=== PATIENT | female | born 1990 | race Two or more races ===

== ENCOUNTER → 2019-01-15 | Outpatient (CLI) | payer OTHER | END | disposition home or self-care (01) | LOC: LAB 15:40 | PROVIDERS: ATTEND Preventive Medicine Preventive Medicine/Occupational Environmental Medicine | DX: Z02.1 Encounter for pre-employment examination (principal) | CPT/HCPCS: 86735; 86762; 86765 ==

== ENCOUNTER 2019-05-10 08:45 | Emergency (ER) | payer BC, OTHER ==
[~2019-05-10] VITALS: Ht 165.1 cm; Wt 114.3 kg
[2019-05-10 09:32] LABS: Basophils # (auto) 0.1 uL; Basophils % (auto) 0.8 % (0.0-2.0); Eosinophils # (auto) 0.1 uL; Eosinophils % (auto) 1.3 % (0.0-7.0); Hematocrit 45.4 % (36.0-46.0); Hemoglobin 15.1 g/dL (12.2-16.2); Mean Corpuscular Hemoglobin 27.4 pg (28.0-32.0); Mean Corpuscular Hgb Conc. 33.3 g/dL (32.0-36.0); Mean Corpuscular Volume 82.4 fL (80.0-100.0); Monocytes # (auto) 0.4 uL; Monocytes % (auto) 4.9 % (0.0-12.0); Neutrophils # (auto) 6.4 uL; Platelet Count (auto) 385 10^3/uL (140-450); Red Blood Cells 5.51 10^6/uL (4.0-5.20); Red Cell Distribution Width 14.4 % (11.8-14.3); White Blood Cell 9.1 10^3/uL (4.4-10.8)
[2019-05-10 09:43] LABS: Alanine Aminotransferase 26 U/L (13-56); Albumin 3.6 g/dL (3.4-5.0); Anion Gap 7 (5-15); Aspartate Aminotransferase 10 U/L (15-37); BUN/Creatinine Ratio 16.7; Blood Urea Nitrogen 13 mg/dL (7-18); Calcium 8.7 mg/dL (8.5-10.1); Carbon Dioxide 26 mmol/L (21-32); Chloride 104 mmol/L (98-107); GFR African American 112 mL/min; GFR Non-African American 92 mL/min; Glucose 136 mg/dL (74-106); Potassium 3.8 mmol/L (3.5-5.1); Sodium 137 mmol/L (136-145)
[2019-05-10 09:48] LABS: Alkaline Phosphatase 90 U/L (45-117); Bilirubin, Total 0.3 mg/dL (0.2-1.0); Total Protein 7.9 g/dL (6.4-8.2)
[2019-05-10] MEDS ORDERED: LORazepam 0.5 MG TAB PO ONE (10:15)
[2019-05-10 10:56] LABS: Urine WBC None Seen /hpf (0 - 5)
[2019-05-10 11:15] LABS: Urine Bacteria FEW /hpf (None Seen); Urine Blood Negative /uL (Negative); Urine Specific Gravity 1.019 (1.001-1.035)
[2019-05-10 13:57] VITALS: BP 124/84
== END 2019-05-10 14:10 | disposition home or self-care (01) ==
LOC: ER 08:45
DX: F41.9 Anxiety disorder, unspecified (principal); R07.89 Other chest pain; R61 Generalized hyperhidrosis; R42 Dizziness and giddiness; I10 Essential (primary) hypertension; M25.512 Pain in left shoulder; R00.2 Palpitations
CPT/HCPCS: 36415; 71046; 80053; 81001; 84443; 84484; 85025; 93005

== ENCOUNTER → 2019-05-21 | Outpatient (CLI) | payer BC ==
[2019-05-21 11:55] LABS: Basophils # (auto) 0.1 uL; Basophils % (auto) 0.7 % (0.0-2.0); Eosinophils # (auto) 0.1 uL; Eosinophils % (auto) 0.8 % (0.0-7.0); Hematocrit 42.7 % (36.0-46.0); Hemoglobin 14.1 g/dL (12.2-16.2); Lymphocytes # (auto) 1.3 uL; Lymphocytes % (auto) 16.4 % (10.0-50.0); Mean Corpuscular Hemoglobin 27.3 pg (28.0-32.0); Mean Corpuscular Hgb Conc. 32.9 g/dL (32.0-36.0); Monocytes # (auto) 0.4 uL; Monocytes % (auto) 4.6 % (0.0-12.0); Neutrophils # (auto) 6.1 uL; Neutrophils % (auto) 77.5 % (37.0-80.0); Nucleated Red Blood Cells % 0.1 %; Platelet Count (auto) 320 10^3/uL (140-450); Red Blood Cells 5.15 10^6/uL (4.0-5.20); Red Cell Distribution Width 14.6 % (11.8-14.3); White Blood Cell 7.8 10^3/uL (4.4-10.8)
[2019-05-21 11:56] LABS: Urine Blood Negative /uL (Negative); Urine Specific Gravity 1.014 (1.001-1.035)
[2019-05-21 12:07] LABS: Albumin 3.5 g/dL (3.4-5.0); Calcium 8.9 mg/dL (8.5-10.1); Potassium 3.8 mmol/L (3.5-5.1)
[2019-05-21 12:18] LABS: Bilirubin, Total 0.3 mg/dL (0.2-1.0); CRP High Sensitivity 1.39 mg/dL (< 0.3); Total Protein 7.4 g/dL (6.4-8.2)
[2019-05-22 17:10] LABS: Free T4 (Free Thyroxine) 1.39 ng/dL (0.89-1.76)
== END | disposition home or self-care (01) ==
LOC: LAB 07:53
PROVIDERS: ATTEND Internal Medicine Cardiovascular Disease
DX: Z00.00 Encounter for general adult medical examination without abnormal findings (principal); N60.11 Diffuse cystic mastopathy of right breast; E03.9 Hypothyroidism, unspecified; K90.9 Intestinal malabsorption, unspecified; N39.0 Urinary tract infection, site not specified; D51.9 Vitamin B12 deficiency anemia, unspecified; Z83.2 Family history of diseases of the blood and blood-forming organs and certain disorders involving the immune mechanism; Z79.899 Other long term (current) drug therapy
CPT/HCPCS: 36415; 80053; 80061; 81003; 82306; 82607; 83036; 84439; 84443; 85025; 86141; 86431

== ENCOUNTER 2019-07-22 12:31 | Emergency (ER) | payer BC ==
[~2019-07-22] VITALS: Ht 162.6 cm; Wt 113.4 kg
[2019-07-22] MEDS ORDERED: KETOROLAC TROMETH 60MG/2ML VIAL IM ONE (19:15)
[2019-07-22 19:35] VITALS: BP 141/99
== END 2019-07-22 21:05 | disposition home or self-care (01) ==
LOC: ER 12:31
DX: G54.9 Nerve root and plexus disorder, unspecified (principal); I10 Essential (primary) hypertension; Z90.49 Acquired absence of other specified parts of digestive tract; Z88.8 Allergy status to other drugs, medicaments and biological substances; Z88.5 Allergy status to narcotic agent
CPT/HCPCS: 72131; 74176; 96372; 99285; J1885

== ENCOUNTER → 2020-01-01 | Outpatient (CLI) | payer BC ==
[2020-01-01 08:35] LABS: Cholesterol 127 mg/dL (< 200); HDL Cholesterol 35 mg/dL (40-59); LDL Cholesterol 87 mg/dL (< 100); Triglycerides 104 mg/dL (< 150)
[2020-01-01 08:42] LABS: Free T4 (Free Thyroxine) 1.32 ng/dL (0.89-1.76); Prolactin 21.68 ng/mL (2.8-29.2)
[2020-01-01 08:43] LABS: Follicle Stimulating Hormone 8.19 IU/L (SEE BELOW)
[2020-01-01 12:27] LABS: Free T3 3.55 pg/mL (2.3-4.2)
== END | disposition home or self-care (01) ==
LOC: LAB 07:20
PROVIDERS: ATTEND Specialist
DX: N92.1 Excessive and frequent menstruation with irregular cycle (principal); I10 Essential (primary) hypertension; E03.9 Hypothyroidism, unspecified
CPT/HCPCS: 36415; 80061; 83001; 83002; 83036; 84146; 84403; 84439; 84443; 84481

== ENCOUNTER → 2020-05-15 | Outpatient (CLI) | payer OTHER | END | disposition home or self-care (01) | LOC: LAB 12:29 | PROVIDERS: ATTEND Nurse Practitioner Family | DX: U07.1 COVID-19 (principal) | CPT/HCPCS: C9803; U0003 ==

== ENCOUNTER 2020-05-23 13:18 | Emergency (ER) | payer BC, OTHER ==
[2020-05-23] MEDS ORDERED: PROMETHAZINE HCL 25 MG/ML 1ML IM ONE (16:00)
[2020-05-23] MEDS ORDERED: DexAMETHasone SOD PHOS 10MG/1ML VIAL INJ IM ONE (16:00)
[2020-05-23] MEDS ORDERED: cefTRIAXone SOD 1,000 MG VL IM ONE (16:00)
== END 2020-05-23 17:13 | disposition home or self-care (01) ==
LOC: ER 13:18
DX: U07.1 COVID-19 (principal); J20.8 Acute bronchitis due to other specified organisms; J45.909 Unspecified asthma, uncomplicated; I10 Essential (primary) hypertension
CPT/HCPCS: 71045; 96372; 99284; J0696; J1100; J2550

== ENCOUNTER → 2020-06-17 | Outpatient (CLI) | payer BC, MEDICAID ==
[2020-06-17 09:03] LABS: Cholesterol 186 mg/dL (< 200); Triglycerides 208 mg/dL (< 150)
[2020-06-17 09:06] LABS: HDL Cholesterol 51 mg/dL (40-59); LDL Cholesterol 113 mg/dL (< 100)
== END | disposition home or self-care (01) ==
LOC: LAB 07:12
PROVIDERS: ATTEND Physician Assistant
DX: E66.01 Morbid (severe) obesity due to excess calories (principal); Z83.2 Family history of diseases of the blood and blood-forming organs and certain disorders involving the immune mechanism
CPT/HCPCS: 36415; 80061; 86038

== ENCOUNTER → 2020-08-07 | Outpatient (CLI) | payer BC, MEDICAID ==
[2020-08-07 11:24] LABS: Urine Bacteria NONE SEEN /hpf (None Seen); Urine Blood Negative /uL (Negative); Urine Mucus FEW (None Seen); Urine Specific Gravity 1.026 (1.001-1.035); Urine WBC 2 /hpf (0 - 5)
== END | disposition home or self-care (01) ==
LOC: LAB 10:49
PROVIDERS: ATTEND Specialist
DX: R10.2 Pelvic and perineal pain (principal)
CPT/HCPCS: 81001; 87086

== ENCOUNTER → 2020-08-20 | Outpatient (CLI) | payer BC, MEDICAID | END | disposition home or self-care (01) | LOC: LAB 16:12 | PROVIDERS: ATTEND Specialist | DX: R10.30 Lower abdominal pain, unspecified (principal) | CPT/HCPCS: 36415; 82565; 84520 ==

== ENCOUNTER → 2020-08-21 | Outpatient (CLI) | payer BC ==
[~2020-08-21] MED LIST: GADOTERATE MEG 10 MMOL/20ml INJ (0.5MMOL/ml) IV ONE
== END | disposition home or self-care (01) ==
LOC: XYW 10:26
PROVIDERS: ATTEND Specialist
DX: N83.201 Unspecified ovarian cyst, right side (principal)
CPT/HCPCS: 73723; A9575

== ENCOUNTER → 2020-10-02 | Outpatient (CLI) | payer BC ==
[2020-10-02 11:44] LABS: Basophils # (auto) 0 10 ^3/uL (0-0.2); Eosinophils # (auto) 0.1 10 ^3/uL (0-0.8); Hemoglobin 13.9 g/dL (12.2-16.2); Mean Corpuscular Volume 80.7 fL (80.0-100.0); Monocytes # (auto) 0.4 10 ^3/uL (0-1.3)
[2020-10-02 11:48] LABS: Basophils % (auto) 0.4 % (0.0-2.0); Eosinophils % (auto) 1.5 % (0.0-7.0); Hematocrit 41.4 % (36.0-46.0); Lymphocytes # (auto) 2.1 10 ^3/uL (0.4-5.4); Lymphocytes % (auto) 26.7 % (10.0-50.0); Mean Corpuscular Hemoglobin 27.1 pg (28.0-32.0); Mean Corpuscular Hgb Conc. 33.5 g/dL (32.0-36.0); Monocytes % (auto) 4.5 % (0.0-12.0); Neutrophils # (auto) 5.4 10 ^3/uL (1.6-8.6); Neutrophils % (auto) 66.9 % (37.0-80.0); Platelet Count (auto) 399 10^3/uL (140-450); Red Blood Cells 5.13 10^6/uL (4.0-5.20); Red Cell Distribution Width 14.4 % (11.8-14.3)
[2020-10-02 12:21] LABS: Albumin 3.7 g/dL (3.4-5.0); Calcium 9.7 mg/dL (8.5-10.1); Potassium 3.9 mmol/L (3.5-5.1)
[2020-10-02 12:26] LABS: BUN/Creatinine Ratio 18.5; Bilirubin, Total 0.3 mg/dL (0.2-1.0); Total Protein 8.1 g/dL (6.4-8.2)
== END | disposition home or self-care (01) ==
LOC: LAB 11:12
PROVIDERS: ATTEND Specialist
DX: R10.9 Unspecified abdominal pain (principal)
CPT/HCPCS: 36415; 80053; 80061; 82378; 84443; 85025; 86304

== ENCOUNTER 2020-10-17 07:29 | Inpatient (IN) | payer BC ==
[2020-10-14 13:01] LABS: Basophils # (auto) 0.1 10 ^3/uL (0-0.2); Basophils % (auto) 0.5 % (0.0-2.0); Eosinophils # (auto) 0.1 10 ^3/uL (0-0.8); Eosinophils % (auto) 0.5 % (0.0-7.0); Hematocrit 41.1 % (36.0-46.0); Hemoglobin 13.7 g/dL (12.2-16.2); Lymphocytes # (auto) 2.3 10 ^3/uL (0.4-5.4); Lymphocytes % (auto) 23.5 % (10.0-50.0); Mean Corpuscular Hemoglobin 26.6 pg (28.0-32.0); Mean Corpuscular Hgb Conc. 33.3 g/dL (32.0-36.0); Mean Corpuscular Volume 79.9 fL (80.0-100.0); Monocytes # (auto) 0.4 10 ^3/uL (0-1.3); Neutrophils % (auto) 71.5 % (37.0-80.0); Nucleated Red Blood Cells % 0.2 %; Platelet Count (auto) 400 10^3/uL (140-450); Red Blood Cells 5.15 10^6/uL (4.0-5.20); Red Cell Distribution Width 14.7 % (11.8-14.3); White Blood Cell 9.8 10^3/uL (4.4-10.8)
[2020-10-14 13:10] LABS: Urine Bacteria MOD /hpf (None Seen); Urine Blood Negative /uL (Negative); Urine Mucus FEW (None Seen); Urine Specific Gravity 1.012 (1.001-1.035); Urine WBC 2 /hpf (0 - 5)
[2020-10-14 13:14] LABS: INR 0.97 (0.9-1.15); Partial Thromboplastin Time 25.6 sec (23.0-31.2)
[2020-10-14 14:05] LABS: Albumin 3.4 g/dL (3.4-5.0); Calcium 9.2 mg/dL (8.5-10.1); Potassium 3.7 mmol/L (3.5-5.1)
[2020-10-14 14:10] LABS: BUN/Creatinine Ratio 14.5; Bilirubin, Total 0.3 mg/dL (0.2-1.0); Total Protein 7.7 g/dL (6.4-8.2)
[~2020-10-17] VITALS: Ht 162.6 cm; Wt 117.2 kg
[~2020-10-17 07:29] MED LIST changes: +ALPR0.5T PO; +BENA20TA PO; -GADOTERATE MEG 10 MMOL/20ml INJ (0.5MMOL/ml) IV ONE; +IBUP800T26 PO; +METF-370 PO; +TIZA2CAP12 PO; +[UNRECOGNIZED DRUG - CODE] PO
[2020-10-17] MEDS ORDERED: ceFAZolin 1GM/50ML 100 ML IV ONE (07:41)
[2020-10-17] MEDS ORDERED: METOCLOPRAMIDE HCL 5MG/ml INJ 2ml VIAL IV PRN (07:45)
[2020-10-17] MEDS ORDERED: HYDROmorphone HCL 2 MG/ML VL IV PRN ×2 (07:45→12:00)
[2020-10-17] MEDS ORDERED: MORPHINE SULFATE 4 MG/ML SYR/VIAL IV PRN (07:45)
[2020-10-17] MEDS ORDERED: ACCU-CHEK COMFORT CURVE STRIP VI ONE (07:45)
[2020-10-17] MEDS ORDERED: ceFAZolin 1GM/50ML 50 ML IV ONE (07:51)
[2020-10-17] MEDS ORDERED: ROCURONIUM 10MG/ML 10ML VIAL IV ONE ×2 (08:24→08:26)
[2020-10-17] MEDS ORDERED: MIDAZOLAM HCL 1MG/1ML-2 ML VIAL ONE (08:26)
[2020-10-17] MEDS ORDERED: ONDANSETRON HCL 4 MG/2 ML VIAL ONE (08:26)
[2020-10-17] MEDS ORDERED: DexAMETHasone SOD PHOS 10MG/1ML VIAL INJ ONE (08:26)
[2020-10-17] MEDS ORDERED: NEOSTIGMINE 1 MG/ML INJ (10mg/10ML VIAL) ONE (08:26)
[2020-10-17] MEDS ORDERED: SODIUM CHLORIDE LOCK 10 ML ONE (08:26)
[2020-10-17] MEDS ORDERED: fentaNYL CITRATE 100 MCG/2 ML VL ONE ×3 (08:26→10:11)
[2020-10-17] MEDS ORDERED: METOCLOPRAMIDE HCL 5MG/ml INJ 2ml VIAL ONE (08:26)
[2020-10-17] MEDS ORDERED: MEPERIDINE HCL (25 MG/ML) 1ML VIAL ONE ×2 (08:26→11:41)
[2020-10-17] MEDS ORDERED: GLYCOPYRROLATE 0.2 MG/ML 1ML VIAL ONE ×2 (08:26→11:08)
[2020-10-17] MEDS ORDERED: HYDROmorphone HCL 2 MG/ML VL ONE (11:59)
[2020-10-17] MEDS: HYDROmorphone HCL 2 MG/ML VL IV PRN ×2 (11:59→12:09)
[2020-10-17] MEDS ORDERED: GUM (CHEWING) 1 GUM CHEW CHEW ONE (12:00)
[2020-10-17] MEDS ORDERED: MORPHINE SULF INJ 2 MG/ML SYRINGE 1ML IV PRN (12:30)
[2020-10-17] MEDS ORDERED: NITROGLYCERIN 0.4 MG SL TAB SL PRN (12:30)
[2020-10-17] MEDS ORDERED: PROMETHAZINE HCL 25 MG/ML 1ML ONE (12:36)
[2020-10-17 14:00] VITALS: BP 136/73
[2020-10-17] MEDS: ceFAZolin 1GM/50ML 50 ML IV SCH ×2 (15:05→20:22)
[2020-10-17] MEDS: LACTATED RINGER'S 1,000 ML IV SCH ×2 (15:05→20:00)
[2020-10-17 16:00] VITALS: BP 105/64
[2020-10-17] MEDS: ONDANSETRON HCL 4 MG/2 ML VIAL IV PRN (18:04)
[2020-10-17] MEDS: KETOROLAC TROMETH 30 MG/ML 1ML VIAL IV PRN (18:04)
[2020-10-17 22:00] VITALS: BP 134/86
[2020-10-18] MEDS: KETOROLAC TROMETH 30 MG/ML 1ML VIAL IV PRN (00:57)
[2020-10-18] MEDS: ceFAZolin 1GM/50ML 50 ML IV SCH (03:36)
[2020-10-18] MEDS: LACTATED RINGER'S 1,000 ML IV SCH ×3 (03:36→21:57)
[2020-10-18 04:54] LABS: Basophils # (auto) 0 10 ^3/uL (0-0.2); Basophils % (auto) 0.2 % (0.0-2.0); Eosinophils # (auto) 0 10 ^3/uL (0-0.8); Eosinophils % (auto) 0.1 % (0.0-7.0); Hemoglobin 13.1 g/dL (12.2-16.2); Monocytes # (auto) 0.6 10 ^3/uL (0-1.3); Nucleated Red Blood Cells % 0.1 %
[2020-10-18 04:56] LABS: Hematocrit 39.6 % (36.0-46.0); Lymphocytes # (auto) 2.3 10 ^3/uL (0.4-5.4); Lymphocytes % (auto) 20.2 % (10.0-50.0); Mean Corpuscular Hemoglobin 26.5 pg (28.0-32.0); Mean Corpuscular Volume 80.4 fL (80.0-100.0); Monocytes % (auto) 5.6 % (0.0-12.0); Neutrophils # (auto) 8.3 10 ^3/uL (1.6-8.6); Neutrophils % (auto) 73.9 % (37.0-80.0); Platelet Count (auto) 366 10^3/uL (140-450); Red Blood Cells 4.93 10^6/uL (4.0-5.20); Red Cell Distribution Width 14.8 % (11.8-14.3); White Blood Cell 11.3 10^3/uL (4.4-10.8)
[2020-10-18 05:00] VITALS: BP 118/76
[2020-10-18 08:37] VITALS: BP 139/83
[2020-10-18] MEDS: HYDROmorphone HCL 2 MG/ML VL IV PRN ×4 (09:40→23:21)
[2020-10-18] MEDS ORDERED: PROMETHAZINE HCL 25 MG/ML 1ML IV ONE (10:00)
[2020-10-18] MEDS ORDERED: ACETAMINOPHEN IV 1000 MG/100ML (10MG/ML) IV ONE (10:00)
[2020-10-18] MEDS: DOCUSATE SOD 100 MG CAP PO SCH ×2 (10:57→22:00)
[2020-10-18] MEDS: SIMETHICONE 80 MG CHEWABLE TABLET PO PRN ×3 (10:58→22:00)
[2020-10-18 12:39] VITALS: BP 125/69
[2020-10-18] MEDS: ONDANSETRON HCL 4 MG/2 ML VIAL IV PRN ×3 (14:32→23:21)
[2020-10-18 16:14] VITALS: BP 116/74
[2020-10-18 22:00] VITALS: BP 139/74
[2020-10-19] MEDS: HYDROmorphone HCL 2 MG/ML VL IV PRN (03:40)
[2020-10-19] MEDS: ONDANSETRON HCL 4 MG/2 ML VIAL IV PRN ×2 (03:40→11:49)
[2020-10-19] MEDS ORDERED: TIZA4CAP7 PO (03:58)
[2020-10-19] MEDS: LACTATED RINGER'S 1,000 ML IV SCH (04:05)
[2020-10-19 05:00] VITALS: BP 123/75
[2020-10-19] MEDS: SIMETHICONE 80 MG CHEWABLE TABLET PO PRN ×2 (05:14→16:41)
[2020-10-19 09:13] VITALS: BP 148/87
[2020-10-19] MEDS: DOCUSATE SOD 100 MG CAP PO SCH ×2 (09:31→22:03)
[2020-10-19] MEDS ORDERED: SIMETHICONE 80 MG CHEWABLE TABLET PO PRN (10:15)
[2020-10-19] MEDS ORDERED: HYDROcodone-ACET 5/325MG TAB PO PRN ×5 (10:15→10:45)
[2020-10-19] MEDS ORDERED: BENAZEPRIL HCL 10 MG TAB PO ONE (10:30)
[2020-10-19] MEDS: HYDROcodone-ACET 5/325MG TAB PO PRN ×2 (11:48→18:52)
[2020-10-19 12:48] VITALS: BP 131/76
[2020-10-19 16:52] VITALS: BP 121/77
[2020-10-19 22:00] VITALS: BP 114/82
[2020-10-19] MEDS ORDERED: DOCUSATE SOD 100 MG CAP PO SCH (22:00)
[2020-10-20] MEDS: HYDROcodone-ACET 5/325MG TAB PO PRN ×3 (00:30→14:35)
[2020-10-20 05:00] VITALS: BP 124/74
[2020-10-20 08:00] VITALS: BP 143/81
[2020-10-20 09:00] VITALS: BP 143/81
[2020-10-20] MEDS ORDERED: BENAZEPRIL HCL 10 MG PO SCH (10:00)
[2020-10-20] MEDS ORDERED: BENAZEPRIL HCL 10 MG TAB PO SCH (10:00)
[2020-10-20] MEDS ORDERED: ALPRAZolam 0.5 MG TAB PO SCH (10:00)
[2020-10-20] MEDS: DOCUSATE SOD 100 MG CAP PO SCH (10:14)
[2020-10-20 13:00] VITALS: BP 118/65
[2020-10-20 15:07] VITALS: BP 119/89
== END 2020-10-20 17:40 | disposition home or self-care (01) | DRG 743 ==
LOC: SUR 07:29 → OVERFLOW 12:22 → CENTRAL 13:55
PROVIDERS: ADMIT Specialist; ATTEND Specialist
PROC: 0UT50ZZ Resection of Right Fallopian Tube, Open Approach (ICD-10-PCS; 2020-10-17)
PROC: 0UT00ZZ Resection of Right Ovary, Open Approach (ICD-10-PCS; 2020-10-17)
PROC: 0DNW0ZZ Release Peritoneum, Open Approach (ICD-10-PCS; 2020-10-17)
PROC: 0UJ34ZZ Inspection of Ovary, Percutaneous Endoscopic Approach (ICD-10-PCS; principal; 2020-10-17 09:14)
DX: N83.201 Unspecified ovarian cyst, right side (principal); G89.29 Other chronic pain; I10 Essential (primary) hypertension; J45.909 Unspecified asthma, uncomplicated; Z20.822 Contact with and (suspected) exposure to COVID-19; N73.6 Female pelvic peritoneal adhesions (postinfective); Z80.0 Family history of malignant neoplasm of digestive organs; Z82.49 Family history of ischemic heart disease and other diseases of the circulatory system; Z83.3 Family history of diabetes mellitus; Z90.49 Acquired absence of other specified parts of digestive tract; Z98.51 Tubal ligation status; Z88.8 Allergy status to other drugs, medicaments and biological substances; Z53.31 Laparoscopic surgical procedure converted to open procedure
CPT/HCPCS: 36415; 80053; 81001; 81025; 82962; 84702; 85025; 85610; 85730; 86850; 86900; 86901; G0378; J0131; J0690; J1100; J1885; J2250; J2405

== ENCOUNTER → 2020-11-19 | Outpatient (CLI) | payer BC, MEDICAID ==
[~2020-11-19] MED LIST changes: -TIZA2CAP12 PO; +TIZA4CAP7 PO
== END | disposition home or self-care (01) ==
LOC: LAB 14:36
PROVIDERS: ATTEND Specialist
DX: R19.7 Diarrhea, unspecified (principal)
CPT/HCPCS: 87493

== ENCOUNTER → 2020-12-02 | Outpatient (CLI) | payer BC, MEDICAID | END | disposition home or self-care (01) | LOC: LAB 14:22 | PROVIDERS: ATTEND Specialist | DX: R19.7 Diarrhea, unspecified (principal) | CPT/HCPCS: 87493 ==

== ENCOUNTER → 2020-12-24 | Outpatient (CLI) | payer BC, MEDICAID ==
[2020-12-24 12:19] LABS: Basophils # (auto) 0.1 10 ^3/uL (0-0.2); Eosinophils # (auto) 0.1 10 ^3/uL (0-0.8); Lymphocytes # (auto) 2.1 10 ^3/uL (0.4-5.4); Monocytes # (auto) 0.3 10 ^3/uL (0-1.3)
[2020-12-24 12:21] LABS: Basophils % (auto) 0.7 % (0.0-2.0); Eosinophils % (auto) 0.8 % (0.0-7.0); Hematocrit 41.4 % (36.0-46.0); Hemoglobin 14.1 g/dL (12.2-16.2); Lymphocytes % (auto) 25.5 % (10.0-50.0); Mean Corpuscular Hemoglobin 27.5 pg (28.0-32.0); Mean Corpuscular Hgb Conc. 34.1 g/dL (32.0-36.0); Mean Corpuscular Volume 80.6 fL (80.0-100.0); Monocytes % (auto) 3.4 % (0.0-12.0); Neutrophils # (auto) 5.6 10 ^3/uL (1.6-8.6); Neutrophils % (auto) 69.6 % (37.0-80.0); Red Blood Cells 5.14 10^6/uL (4.0-5.20); Red Cell Distribution Width 14.7 % (11.8-14.3); White Blood Cell 8.1 10^3/uL (4.4-10.8)
[2020-12-24 13:49] LABS: Albumin 3.8 g/dL (3.4-5.0); Calcium 9.3 mg/dL (8.5-10.1)
[2020-12-24 13:54] LABS: BUN/Creatinine Ratio 16.4; Bilirubin, Total 0.4 mg/dL (0.2-1.0); Total Protein 8.2 g/dL (6.4-8.2)
== END | disposition home or self-care (01) ==
LOC: LAB 11:24
PROVIDERS: ATTEND Nurse Practitioner Family
DX: A04.72 Enterocolitis due to Clostridium difficile, not specified as recurrent (principal); R10.33 Periumbilical pain; M25.59 Pain in other specified joint
CPT/HCPCS: 36415; 80053; 85025; 86225; 86235

== ENCOUNTER 2020-12-29 06:47 | Emergency (ER) | payer BC, MEDICAID ==
[~2020-12-29] VITALS: Ht 165.1 cm; Wt 112.5 kg
[2020-12-29] MEDS ORDERED: MORPHINE SULFATE 4 MG/ML SYR/VIAL IV ONE (07:30)
[2020-12-29] MEDS ORDERED: ONDANSETRON HCL 4 MG/2 ML VIAL IV ONE (07:30)
[2020-12-29] MEDS ORDERED: SODIUM CHLORIDE 0.9% 1,000 ML IV ONE (07:30)
[2020-12-29 08:23] LABS: Urine WBC None Seen /hpf (0 - 5)
[2020-12-29 08:30] LABS: Eosinophils # (auto) 0.1 10 ^3/uL (0-0.8); Eosinophils % (auto) 1.2 % (0.0-7.0); Monocytes # (auto) 0.4 10 ^3/uL (0-1.3); Red Cell Distribution Width 14.7 % (11.8-14.3)
[2020-12-29 08:32] LABS: Basophils # (auto) 0.1 10 ^3/uL (0-0.2); Basophils % (auto) 0.7 % (0.0-2.0); Hematocrit 39.8 % (36.0-46.0); Hemoglobin 13.3 g/dL (12.2-16.2); Lymphocytes # (auto) 2.1 10 ^3/uL (0.4-5.4); Lymphocytes % (auto) 26.9 % (10.0-50.0); Mean Corpuscular Hgb Conc. 33.4 g/dL (32.0-36.0); Mean Corpuscular Volume 80.8 fL (80.0-100.0); Monocytes % (auto) 4.5 % (0.0-12.0); Neutrophils # (auto) 5.2 10 ^3/uL (1.6-8.6); Neutrophils % (auto) 66.7 % (37.0-80.0); Nucleated Red Blood Cells % 0.1 %; Red Blood Cells 4.93 10^6/uL (4.0-5.20); White Blood Cell 7.8 10^3/uL (4.4-10.8)
[2020-12-29 08:38] LABS: Urine Bacteria FEW /hpf (None Seen); Urine Blood Negative /uL (Negative); Urine Specific Gravity 1.003 (1.001-1.035)
[2020-12-29 08:46] LABS: Albumin 3.3 g/dL (3.4-5.0); Calcium 8.8 mg/dL (8.5-10.1); Potassium 3.9 mmol/L (3.5-5.1)
[2020-12-29 08:50] LABS: BUN/Creatinine Ratio 16.7; Bilirubin, Total 0.2 mg/dL (0.2-1.0); Total Protein 7.6 g/dL (6.4-8.2)
[2020-12-29 11:47] VITALS: BP 115/64
== END 2020-12-29 11:53 | disposition home or self-care (01) ==
LOC: ER 06:47
DX: N83.202 Unspecified ovarian cyst, left side (principal); E44.1 Mild protein-calorie malnutrition; I10 Essential (primary) hypertension; Z88.6 Allergy status to analgesic agent; Z68.41 Body mass index [BMI] 40.0-44.9, adult
CPT/HCPCS: 36415; 74176; 80053; 81001; 85025; 96361; 96374; 96375; 99284; J2270; J2405; J7030

== ENCOUNTER 2021-02-03 08:47 | Emergency (ER) | payer BC, MEDICAID ==
[~2021-02-03] VITALS: Ht 162.6 cm; Wt 110.7 kg
[2021-02-03] MEDS ORDERED: ONDANSETRON HCL 4 MG/2 ML VIAL IV ONE (09:45)
[2021-02-03] MEDS ORDERED: SODIUM CHLORIDE 0.9% 1,000 ML IVB ONE (09:45)
[2021-02-03] MEDS ORDERED: KETOROLAC TROMETH 30 MG/ML 1ML VIAL IV ONE (09:45)
[2021-02-03 10:03] LABS: Urine Bacteria FEW /hpf (None Seen); Urine Blood Negative /uL (Negative); Urine WBC 1 /hpf (0 - 5)
[2021-02-03] MEDS ORDERED: IOHEXOL 300 MG/ML 100ML BOTTLE IJ ONE (10:07)
[2021-02-03 10:11] LABS: Hematocrit 39.9 % (36.0-46.0)
[2021-02-03 10:20] LABS: Basophils # (auto) 0 10 ^3/uL (0-0.2); Basophils % (auto) 0.3 % (0.0-2.0); Eosinophils # (auto) 0.1 10 ^3/uL (0-0.8); Eosinophils % (auto) 0.7 % (0.0-7.0); Hemoglobin 13.2 g/dL (12.2-16.2); Lymphocytes # (auto) 1.8 10 ^3/uL (0.4-5.4); Mean Corpuscular Hemoglobin 26.6 pg (28.0-32.0); Mean Corpuscular Hgb Conc. 33.1 g/dL (32.0-36.0); Mean Corpuscular Volume 80.4 fL (80.0-100.0); Monocytes # (auto) 0.3 10 ^3/uL (0-1.3); Neutrophils # (auto) 6.1 10 ^3/uL (1.6-8.6); Red Blood Cells 4.96 10^6/uL (4.0-5.20); White Blood Cell 8.4 10^3/uL (4.4-10.8)
[2021-02-03 14:00] LABS: Potassium 3.9 mmol/L (3.5-5.1)
[2021-02-03 14:21] LABS: Albumin 3.3 g/dL (3.4-5.0); Bilirubin, Total 0.2 mg/dL (0.2-1.0); Calcium 9.3 mg/dL (8.5-10.1); Total Protein 7.6 g/dL (6.4-8.2)
[2021-02-03 14:55] VITALS: BP 130/83
== END 2021-02-03 15:13 | disposition home or self-care (01) ==
LOC: ER 08:47
DX: R10.30 Lower abdominal pain, unspecified (principal); I10 Essential (primary) hypertension; E11.9 Type 2 diabetes mellitus without complications; J45.909 Unspecified asthma, uncomplicated; Z88.6 Allergy status to analgesic agent; Z53.29 Procedure and treatment not carried out because of patient's decision for other reasons
CPT/HCPCS: 36415; 74177; 76830; 76856; 80053; 81001; 81025; 83690; 85025; 96361; 96374; 96375; 99285; J1885; J2405; J7030; Q9967

== ENCOUNTER → 2021-02-11 | Outpatient (CLI) | payer BC, MEDICAID | END | disposition home or self-care (01) | LOC: LAB 07:43 | PROVIDERS: ATTEND Internal Medicine Gastroenterology | DX: R19.5 Other fecal abnormalities (principal) | CPT/HCPCS: 82270 ==

== ENCOUNTER → 2021-06-02 | Outpatient (CLI) | payer BC | END | disposition home or self-care (01) | LOC: LAB 13:37 | PROVIDERS: ATTEND Nurse Practitioner Family | DX: R19.7 Diarrhea, unspecified (principal) | CPT/HCPCS: 87493 ==

== ENCOUNTER → 2021-06-30 | Outpatient (CLI) | payer BC ==
[2021-06-30 10:23] LABS: Basophils # (auto) 0 10 ^3/uL (0-0.2); Basophils % (auto) 0.5 % (0.0-2.0); Eosinophils # (auto) 0.1 10 ^3/uL (0-0.8); Eosinophils % (auto) 1.2 % (0.0-7.0); Hematocrit 38.4 % (36.0-46.0); Hemoglobin 12.9 g/dL (12.2-16.2); Lymphocytes # (auto) 2.2 10 ^3/uL (0.4-5.4); Lymphocytes % (auto) 27.2 % (10.0-50.0); Mean Corpuscular Hgb Conc. 33.5 g/dL (32.0-36.0); Mean Corpuscular Volume 80.4 fL (80.0-100.0); Monocytes # (auto) 0.3 10 ^3/uL (0-1.3); Monocytes % (auto) 3.5 % (0.0-12.0); Neutrophils # (auto) 5.5 10 ^3/uL (1.6-8.6); Neutrophils % (auto) 67.6 % (37.0-80.0); Nucleated Red Blood Cells % 0.2 %; Red Blood Cells 4.78 10^6/uL (4.0-5.20); Red Cell Distribution Width 14.9 % (11.8-14.3); White Blood Cell 8.1 10^3/uL (4.4-10.8)
[2021-06-30 10:24] LABS: Albumin 3.3 g/dL (3.4-5.0); Calcium 8.8 mg/dL (8.5-10.1)
[2021-06-30 10:30] LABS: BUN/Creatinine Ratio 19.7; Bilirubin, Total 0.2 mg/dL (0.2-1.0); Total Protein 7.3 g/dL (6.4-8.2)
== END | disposition home or self-care (01) ==
LOC: LAB 08:43
PROVIDERS: ATTEND Internal Medicine
DX: R00.0 Tachycardia, unspecified (principal); I10 Essential (primary) hypertension
CPT/HCPCS: 36415; 80053; 80061; 85025

== ENCOUNTER → 2021-06-30 | Outpatient (CLI) | payer BC | END | disposition home or self-care (01) | LOC: XYW 07:45 | PROVIDERS: ATTEND Internal Medicine | DX: I51.7 Cardiomegaly (principal); I35.0 Nonrheumatic aortic (valve) stenosis | CPT/HCPCS: 93306 ==

== ENCOUNTER → 2021-07-14 | Outpatient (CLI) | payer BC ==
[~2021-07-14] VITALS: Ht 165.1 cm; Wt 117.9 kg
[~2021-07-14] MED LIST changes: +ADENOSINE 99 MG in GIVE UN-DILUTED 0 ML IV STA; +ALBUAER3 IN; +DICY20TA PO; +MECL12.514 PO
[2021-07-14 08:40] VITALS: BP 143/87
== END | disposition home or self-care (01) ==
LOC: XY 07:51
PROVIDERS: ATTEND Internal Medicine
DX: R00.0 Tachycardia, unspecified (principal); I10 Essential (primary) hypertension; R94.31 Abnormal electrocardiogram [ECG] [EKG]; E11.9 Type 2 diabetes mellitus without complications
CPT/HCPCS: 78452; 93017; A9500; J0153

== ENCOUNTER → 2021-07-22 | Day surgery (SDC) | payer BC, MEDICAID ==
[2021-07-21 07:12] LABS: Urine Bacteria FEW /hpf (None Seen); Urine Blood Negative /uL (Negative); Urine Specific Gravity 1.003 (1.001-1.035); Urine WBC 1 /hpf (0 - 5)
[2021-07-21 07:16] LABS: INR 0.96 (0.9-1.15); Partial Thromboplastin Time 27.2 sec (23.6-33.0)
[2021-07-21 11:29] LABS: Basophils # (auto) 0.1 10 ^3/uL (0-0.2); Basophils % (auto) 0.9 % (0.0-2.0); Eosinophils # (auto) 0.1 10 ^3/uL (0-0.8); Eosinophils % (auto) 1.4 % (0.0-7.0); Hematocrit 40.5 % (36.0-46.0); Hemoglobin 13.6 g/dL (12.2-16.2); Lymphocytes # (auto) 2.5 10 ^3/uL (0.4-5.4); Lymphocytes % (auto) 27.2 % (10.0-50.0); Mean Corpuscular Hgb Conc. 33.5 g/dL (32.0-36.0); Mean Corpuscular Volume 80.5 fL (80.0-100.0); Monocytes # (auto) 0.4 10 ^3/uL (0-1.3); Monocytes % (auto) 4.9 % (0.0-12.0); Neutrophils # (auto) 5.9 10 ^3/uL (1.6-8.6); Neutrophils % (auto) 65.6 % (37.0-80.0); Nucleated Red Blood Cells % 0.2 %; Red Blood Cells 5.03 10^6/uL (4.0-5.20); Red Cell Distribution Width 15.2 % (11.8-14.3); White Blood Cell 9.1 10^3/uL (4.4-10.8)
[2021-07-21 14:00] LABS: Albumin 3.4 g/dL (3.4-5.0); Calcium 9.1 mg/dL (8.5-10.1)
[2021-07-21 14:03] LABS: BUN/Creatinine Ratio 15.6; Bilirubin, Total 0.2 mg/dL (0.2-1.0); Total Protein 7.5 g/dL (6.4-8.2)
[~2021-07-22] VITALS: Ht 165.1 cm; Wt 116.1 kg
[~2021-07-22] MED LIST changes: -ADENOSINE 99 MG in GIVE UN-DILUTED 0 ML IV STA; +LIDOCAINE 2% (LOCAL ANESTH.) PF 5ml SDV ONE; +MIDAZOLAM HCL 2MG/2ML 2ml VIAL (1mg/ml) ONE; +ONDANSETRON HCL 4 MG/2 ML VIAL IV PRN; +ONDANSETRON HCL 4 MG/2 ML VIAL ONE; +PROPOFOL 10 MG/ML 20 ML IV ONE; +fentaNYL CITRATE 100 MCG/2 ML VL ONE
[2021-07-22 14:05] VITALS: BP 114/75
== END | disposition home or self-care (01) ==
LOC: GI 11:41
PROVIDERS: ATTEND Internal Medicine Gastroenterology
DX: R19.4 Change in bowel habit (principal); K62.5 Hemorrhage of anus and rectum; K64.8 Other hemorrhoids; F41.9 Anxiety disorder, unspecified; K31.89 Other diseases of stomach and duodenum; I10 Essential (primary) hypertension; J45.909 Unspecified asthma, uncomplicated; Z83.3 Family history of diabetes mellitus; Z90.49 Acquired absence of other specified parts of digestive tract; Z98.891 History of uterine scar from previous surgery; Z88.5 Allergy status to narcotic agent; Z20.822 Contact with and (suspected) exposure to COVID-19
CPT/HCPCS: 36415; 45380; 80053; 81001; 81025; 84702; 85025; 85610; 85730; 88305; J2001; J2250; J2405; J2704; J3010; J7030; U0003; 99152

== ENCOUNTER → 2022-02-03 | Outpatient (CLI) | payer BC, MEDICAID ==
[~2022-02-03] MED LIST changes: -LIDOCAINE 2% (LOCAL ANESTH.) PF 5ml SDV ONE; -MIDAZOLAM HCL 2MG/2ML 2ml VIAL (1mg/ml) ONE; -ONDANSETRON HCL 4 MG/2 ML VIAL IV PRN; -ONDANSETRON HCL 4 MG/2 ML VIAL ONE; -PROPOFOL 10 MG/ML 20 ML IV ONE; -fentaNYL CITRATE 100 MCG/2 ML VL ONE
[2022-02-03 14:02] LABS: Free T3 3.67 pg/mL (2.3-4.2); Free T4 (Free Thyroxine) 1.54 ng/dL (0.89-1.76); T3 Total 1.5 ng/mL (0.60-1.81)
== END | disposition home or self-care (01) ==
LOC: LAB 08:38
PROVIDERS: ATTEND Internal Medicine
DX: R00.2 Palpitations (principal); I10 Essential (primary) hypertension
CPT/HCPCS: 36415; 84439; 84443; 84480; 84481

== ENCOUNTER → 2022-04-05 | Outpatient (CLI) | payer BC ==
[2022-04-05 08:02] LABS: Basophils # (auto) 0.1 10 ^3/uL (0-0.2); Basophils % (auto) 0.9 % (0.0-2.0); Eosinophils # (auto) 0.1 10 ^3/uL (0-0.8); Eosinophils % (auto) 1.6 % (0.0-7.0); Hematocrit 41.9 % (36.0-46.0); Lymphocytes # (auto) 2.2 10 ^3/uL (0.4-5.4); Lymphocytes % (auto) 29.8 % (10.0-50.0); Mean Corpuscular Hemoglobin 26.3 pg (28.0-32.0); Mean Corpuscular Hgb Conc. 33.3 g/dL (32.0-36.0); Monocytes # (auto) 0.3 10 ^3/uL (0-1.3); Monocytes % (auto) 4.6 % (0.0-12.0); Neutrophils # (auto) 4.7 10 ^3/uL (1.6-8.6); Neutrophils % (auto) 63.1 % (37.0-80.0); Red Blood Cells 5.31 10^6/uL (4.0-5.20); White Blood Cell 7.4 10^3/uL (4.4-10.8)
[2022-04-05 08:52] LABS: Calcium 9.3 mg/dL (8.5-10.1); Potassium 4.2 mmol/L (3.5-5.1)
[2022-04-05 08:59] LABS: Albumin 3.6 g/dL (3.4-5.0); BUN/Creatinine Ratio 10.7; Bilirubin, Total 0.6 mg/dL (0.2-1.0); Total Protein 7.6 g/dL (6.4-8.2)
== END | disposition home or self-care (01) ==
LOC: LAB 07:40
PROVIDERS: ATTEND Nurse Practitioner Family
DX: E11.9 Type 2 diabetes mellitus without complications (principal); E03.9 Hypothyroidism, unspecified; L65.9 Nonscarring hair loss, unspecified
CPT/HCPCS: 36415; 80053; 84439; 84443; 85025

== ENCOUNTER → 2022-06-21 | Outpatient (CLI) | payer BC, MEDICAID | END | disposition home or self-care (01) | LOC: LAB 06:41 | PROVIDERS: ATTEND Nurse Practitioner Family | DX: E11.9 Type 2 diabetes mellitus without complications (principal) | CPT/HCPCS: 36415; 83036 ==

== ENCOUNTER → 2022-09-16 | Outpatient (CLI) | payer BC | END | disposition home or self-care (01) | LOC: XYW 07:29 | PROVIDERS: ATTEND Internal Medicine | DX: R07.89 Other chest pain (principal); I10 Essential (primary) hypertension; E11.65 Type 2 diabetes mellitus with hyperglycemia | CPT/HCPCS: 78452; 93017; A9500 ==

== ENCOUNTER 2022-11-10 06:52 | Day surgery (SDC) | payer BC ==
[2022-11-09 10:41] LABS: Basophils # (auto) 0 10 ^3/uL (0-0.2); Eosinophils # (auto) 0.1 10 ^3/uL (0-0.8); Monocytes # (auto) 0.4 10 ^3/uL (0-1.3)
[2022-11-09 10:44] LABS: Basophils % (auto) 0.4 % (0.0-2.0); Eosinophils % (auto) 1.3 % (0.0-7.0); Hematocrit 41.5 % (36.0-46.0); Hemoglobin 13.8 g/dL (12.2-16.2); Lymphocytes % (auto) 25.7 % (10.0-50.0); Mean Corpuscular Hgb Conc. 33.4 g/dL (32.0-36.0); Mean Corpuscular Volume 80.9 fL (80.0-100.0); Monocytes % (auto) 5.3 % (0.0-12.0); Neutrophils # (auto) 5.4 10 ^3/uL (1.6-8.6); Neutrophils % (auto) 67.3 % (37.0-80.0); Red Blood Cells 5.13 10^6/uL (4.0-5.20)
[2022-11-09 11:20] LABS: Calcium 9.5 mg/dL (8.5-10.1); Potassium 4.4 mmol/L (3.5-5.1)
[2022-11-09 11:21] LABS: INR 1.01 (0.9-1.15); Partial Thromboplastin Time 29.4 sec (24.6-33.4)
[2022-11-09 11:25] LABS: BUN/Creatinine Ratio 14.5 (10.0-20.0); Bilirubin, Total 0.3 mg/dL (0.2-1.0); Total Protein 7.9 g/dL (6.4-8.2)
[2022-11-10] VITALS (9 sets, daily range): BP systolic 89–104; BP diastolic 56–69
[~2022-11-10] VITALS: Ht 165.1 cm; Wt 97.5 kg
[~2022-11-10 06:52] MED LIST changes: +ASPI1TAB19 PO; -DICY20TA PO; +FINE10TA PO; +IBUP-1455 PO; -IBUP800T26 PO; -MECL12.514 PO; +METO1TAB9 PO; +TIRZ7.5I SC; -TIZA4CAP7 PO; +TRAM50TA2 PO; -[UNRECOGNIZED DRUG - CODE] PO
[2022-11-10] MEDS ORDERED: LIDOCAINE 2%HCL (LOCAL ANESTH.) INJ 20ML MDV ONE (08:25)
[2022-11-10] MEDS ORDERED: IODIXANOL 320MG/ML 100ML BTL IV ONE (08:25)
[2022-11-10] MEDS ORDERED: ANGIOMAX 250 MG VIAL IV ONE (08:33)
[2022-11-10] MEDS ORDERED: HEPARIN SODIUM (PORCINE) 5000 UNITS/ML 1ML VIAL ONE (08:33)
[2022-11-10] MEDS ORDERED: MIDAZOLAM HCL 2MG/2ML 2ml VIAL (1mg/ml) ONE (08:34)
[2022-11-10] MEDS ORDERED: VERAPAMIL 2.5MG/ML INJ 2ML VIAL IV ONE (08:34)
[2022-11-10] MEDS ORDERED: SODIUM CHL 0.9% 0 ML ONE (08:34)
[2022-11-10] MEDS ORDERED: fentaNYL CITRATE 100 MCG/2 ML VL ONE ×2 (08:34→09:09)
== END 2022-11-10 12:15 | disposition home or self-care (01) ==
LOC: CATH 06:52
PROVIDERS: ATTEND Internal Medicine
DX: R07.89 Other chest pain (principal); J45.909 Unspecified asthma, uncomplicated; I10 Essential (primary) hypertension
CPT/HCPCS: 36415; 76937; 80053; 84702; 85025; 85610; 85730; 93458; C1769; C1887; C1894; J1644; J2250; J3010; Q9967; 99152

== ENCOUNTER → 2024-01-18 | Outpatient (CLI) | payer BC ==
[~2024-01-18] MED LIST changes: +ACE3T PO; +ZOFR4T PO
[2024-01-18 07:25] LABS: Basophils # (auto) 0.1 10 ^3/uL (0-0.2); Basophils % (auto) 0.8 % (0.0-2.0); Eosinophils # (auto) 0.1 10 ^3/uL (0-0.8); Eosinophils % (auto) 1.2 % (0.0-7.0); Hemoglobin 13.6 g/dL (12.2-16.2); Lymphocytes # (auto) 2.1 10 ^3/uL (0.4-5.4); Lymphocytes % (auto) 29.7 % (10.0-50.0); Mean Corpuscular Hemoglobin 27.5 pg (28.0-32.0); Mean Corpuscular Hgb Conc. 32.3 g/dL (32.0-36.0); Monocytes # (auto) 0.5 10 ^3/uL (0-1.3); Monocytes % (auto) 7.1 % (0.0-12.0); Neutrophils # (auto) 4.3 10 ^3/uL (1.6-8.6); Neutrophils % (auto) 61.2 % (37.0-80.0); Platelet Count (auto) 374 10^3/uL (140-450); Red Blood Cells 4.94 10^6/uL (4.0-5.20)
[2024-01-18 08:18] LABS: Alanine Aminotransferase 12 U/L (7-40); Albumin 4.6 g/dL (3.2-4.8); Alkaline Phosphatase 72 U/L (46-116); Anion Gap 4 (5-15); Aspartate Aminotransferase < 8 U/L (13-40); Calcium 9.7 mg/dL (8.7-10.4); Carbon Dioxide 25 mmol/L (20-30); Chloride 107 mmol/L (98-107); Potassium 4.3 mmol/L (3.5-5.1); Sodium 136 mmol/L (136-145)
[2024-01-18 08:19] LABS: Blood Urea Nitrogen 13 mg/dL (9-23); Glucose 96 mg/dL (74-106); Triglycerides 90 mg/dL (< 150)
[2024-01-18 08:20] LABS: LDL Cholesterol 92 mg/dL (< 100)
[2024-01-18 08:21] LABS: Bilirubin, Total 0.4 mg/dL (0.2-1.0); Cholesterol 145 mg/dL (< 200); HDL Cholesterol 42 mg/dL (40-59); Total Protein 7.3 g/dL (5.7-8.2)
[2024-01-18 09:00] LABS: Free T3 3.39 pg/mL (2.3-4.2)
[2024-01-18 09:01] LABS: Free T4 (Free Thyroxine) 1.35 ng/dL (0.89-1.76)
== END | disposition home or self-care (01) ==
LOC: LAB 07:05
PROVIDERS: ATTEND Internal Medicine
DX: I10 Essential (primary) hypertension (principal); E11.65 Type 2 diabetes mellitus with hyperglycemia; E78.5 Hyperlipidemia, unspecified
CPT/HCPCS: 36415; 80053; 80061; 83036; 84439; 84443; 84481; 85025

== ENCOUNTER → 2024-03-08 | Outpatient (CLI) | payer BC ==
[2024-03-08 13:02] LABS: Basophils # (auto) 0 10 ^3/uL (0-0.2); Basophils % (auto) 0.5 % (0.0-2.0); Eosinophils # (auto) 0.1 10 ^3/uL (0-0.8); Eosinophils % (auto) 1.1 % (0.0-7.0); Hematocrit 37.3 % (36.0-46.0); Hemoglobin 12.6 g/dL (12.2-16.2); Lymphocytes % (auto) 25.8 % (10.0-50.0); Mean Corpuscular Hemoglobin 28.2 pg (28.0-32.0); Mean Corpuscular Hgb Conc. 33.7 g/dL (32.0-36.0); Mean Corpuscular Volume 83.7 fL (80.0-100.0); Monocytes # (auto) 0.6 10 ^3/uL (0-1.3); Monocytes % (auto) 7.3 % (0.0-12.0); Neutrophils # (auto) 5.1 10 ^3/uL (1.6-8.6); Neutrophils % (auto) 65.3 % (37.0-80.0); Platelet Count (auto) 354 10^3/uL (140-450); Red Blood Cells 4.46 10^6/uL (4.0-5.20); Red Cell Distribution Width 13.6 % (11.8-14.3); White Blood Cell 7.9 10^3/uL (4.4-10.8)
== END | disposition home or self-care (01) ==
LOC: LAB 12:25
PROVIDERS: ATTEND Nurse Practitioner Family
DX: I10 Essential (primary) hypertension (principal); E78.5 Hyperlipidemia, unspecified
CPT/HCPCS: 36415; 85025

== ENCOUNTER → 2024-03-27 | Outpatient (CLI) | payer BC ==
[2024-03-27 13:49] LABS: Amphetamine Screen, Urine Neg (NEGATIVE); Barbiturate Scree,Urine Neg (NEGATIVE); Benzodiazephine Screen, Urine Neg (NEGATIVE); Cocaine Screen, Urine Neg (NEGATIVE); Opiate Scree,Urine Neg (NEGATIVE)
[2024-03-27 13:50] LABS: Cannabinoid Screen, Urine Neg (NEGATIVE); Phencyclidine Screen, Urine Neg (NEGATIVE)
[2024-03-27 13:53] LABS: Alanine Aminotransferase 10 U/L (7-40); Albumin 4.6 g/dL (3.2-4.8); Alkaline Phosphatase 70 U/L (46-116); Anion Gap 5 (5-15); Aspartate Aminotransferase < 8 U/L (13-40); BUN/Creatinine Ratio 16.9 (10.0-20.0); Bilirubin, Total 0.4 mg/dL (0.2-1.0); Blood Urea Nitrogen 13 mg/dL (9-23); Calcium 10.2 mg/dL (8.7-10.4); Carbon Dioxide 27 mmol/L (20-31); Chloride 107 mmol/L (98-107); Glucose 91 mg/dL (74-106); Potassium 4.2 mmol/L (3.5-5.1); Sodium 139 mmol/L (136-145); Total Protein 7.2 g/dL (5.7-8.2)
== END | disposition home or self-care (01) ==
LOC: LAB 12:37
PROVIDERS: ATTEND Internal Medicine
DX: G89.4 Chronic pain syndrome (principal)
CPT/HCPCS: 36415; 80053; 80307

== ENCOUNTER → 2024-08-20 | Outpatient (CLI) | payer BC ==
[2024-08-20 14:36] LABS: Basophils # (auto) 0.1 10 ^3/uL (0-0.2); Basophils % (auto) 0.8 % (0.0-2.0); Eosinophils # (auto) 0.1 10 ^3/uL (0-0.8); Hematocrit 39.5 % (36.0-46.0); Hemoglobin 13.5 g/dL (12.2-16.2); Lymphocytes # (auto) 2.1 10 ^3/uL (0.4-5.4); Lymphocytes % (auto) 25.9 % (10.0-50.0); Mean Corpuscular Hemoglobin 27.8 pg (28.0-32.0); Mean Corpuscular Hgb Conc. 34.1 g/dL (32.0-36.0); Mean Corpuscular Volume 81.5 fL (80.0-100.0); Monocytes # (auto) 0.5 10 ^3/uL (0-1.3); Neutrophils # (auto) 5.3 10 ^3/uL (1.6-8.6); Neutrophils % (auto) 66.3 % (37.0-80.0); Nucleated Red Blood Cells % 0.1 %; Platelet Count (auto) 369 10^3/uL (140-450); Red Blood Cells 4.84 10^6/uL (4.0-5.20); Red Cell Distribution Width 15.2 % (11.8-14.3)
[2024-08-20 15:12] LABS: Benzodiazephine Screen, Urine Neg (NEGATIVE); Opiate Scree,Urine Neg (NEGATIVE)
[2024-08-20 15:13] LABS: Creatinine, Urine 58.09 mg/dL (30.0-125.0)
[2024-08-20 15:16] LABS: Alanine Aminotransferase 22 U/L (7-40); Alkaline Phosphatase 78 U/L (46-116); Amphetamine Screen, Urine Neg (NEGATIVE); Anion Gap 10 (5-15); Aspartate Aminotransferase 15 U/L (13-40); BUN/Creatinine Ratio 18.9 (10.0-20.0); Barbiturate Scree,Urine Neg (NEGATIVE); Blood Urea Nitrogen 17 mg/dL (9-23); Calcium 10.3 mg/dL (8.7-10.4); Cannabinoid Screen, Urine Neg (NEGATIVE); Carbon Dioxide 26 mmol/L (20-31); Chloride 102 mmol/L (98-107); Cholesterol 156 mg/dL (< 200); Cocaine Screen, Urine Neg (NEGATIVE); Glucose 93 mg/dL (74-106); LDL Cholesterol 95 mg/dL (< 100); Phencyclidine Screen, Urine Neg (NEGATIVE); Potassium 3.9 mmol/L (3.5-5.1); Sodium 138 mmol/L (136-145); Total Protein 7.1 g/dL (5.7-8.2)
[2024-08-20 15:17] LABS: Albumin 4.9 g/dL (3.2-4.8); Bilirubin, Total 0.3 mg/dL (0.2-1.0); HDL Cholesterol 41 mg/dL (40-59); Triglycerides 195 mg/dL (< 150)
[2024-08-20 15:20] LABS: Free T3 3.4 pg/mL (2.3-4.2)
[2024-08-20 15:21] LABS: Free T4 (Free Thyroxine) 1.43 ng/dL (0.89-1.76)
[2024-08-21 08:07] LABS: Rheumatoid Arthritis Factor <10.0 IU/mL (<14.0)
[2024-08-21 15:08] LABS: Anti-Nuclear Antibody Direct Negative (Negative)
== END | disposition home or self-care (01) ==
LOC: LAB 14:04
PROVIDERS: ATTEND Internal Medicine
DX: I10 Essential (primary) hypertension (principal); E11.65 Type 2 diabetes mellitus with hyperglycemia; E78.5 Hyperlipidemia, unspecified; R79.89 Other specified abnormal findings of blood chemistry; M25.50 Pain in unspecified joint; Z00.01 Encounter for general adult medical examination with abnormal findings
CPT/HCPCS: 36415; 80053; 80061; 80307; 82043; 82306; 82570; 83036; 84439; 84443; 84481; 85025; 86038; 86431

== ENCOUNTER → 2024-09-27 | Outpatient (CLI) | payer BC ==
[2024-09-27 16:19] LABS: Potassium 3.9 mmol/L (3.5-5.1)
[2024-09-27 16:20] LABS: Calcium 10.8 mg/dL (8.7-10.4)
[2024-09-27 16:25] LABS: BUN/Creatinine Ratio 22.4 (10.0-20.0)
[2024-09-27 16:26] LABS: Albumin 5.1 g/dL (3.2-4.8)
[2024-09-27 16:27] LABS: Phosphorus 4.1 mg/dL (2.4-5.1)
[2024-09-28 08:07] LABS: Anti-Nuclear Antibody Direct Negative (Negative); Anti-dsDNA Antibody 1 IU/mL (0-9)
== END | disposition home or self-care (01) ==
LOC: LAB 14:13
PROVIDERS: ATTEND Internal Medicine
DX: E11.65 Type 2 diabetes mellitus with hyperglycemia (principal); E78.5 Hyperlipidemia, unspecified; M13.0 Polyarthritis, unspecified; R65.10 Systemic inflammatory response syndrome (SIRS) of non-infectious origin without acute organ dysfunction
CPT/HCPCS: 36415; 80069; 86038; 86225

== ENCOUNTER → 2024-10-02 | Outpatient (CLI) | payer BC ==
[2024-10-02 11:45] LABS: Basophils # (auto) 0 10 ^3/uL (0-0.2); Basophils % (auto) 0.8 % (0.0-2.0); Eosinophils # (auto) 0 10 ^3/uL (0-0.8); Eosinophils % (auto) 0.7 % (0.0-7.0); Hematocrit 39.4 % (36.0-46.0); Hemoglobin 13.2 g/dL (12.2-16.2); Lymphocytes # (auto) 1.9 10 ^3/uL (0.4-5.4); Lymphocytes % (auto) 31.6 % (10.0-50.0); Mean Corpuscular Hgb Conc. 33.4 g/dL (32.0-36.0); Mean Corpuscular Volume 80.9 fL (80.0-100.0); Monocytes # (auto) 0.5 10 ^3/uL (0-1.3); Monocytes % (auto) 8.1 % (0.0-12.0); Neutrophils # (auto) 3.5 10 ^3/uL (1.6-8.6); Neutrophils % (auto) 58.8 % (37.0-80.0); Platelet Count (auto) 351 10^3/uL (140-450); Red Blood Cells 4.88 10^6/uL (4.0-5.20); Red Cell Distribution Width 14.5 % (11.8-14.3)
== END | disposition home or self-care (01) ==
LOC: LAB 11:15
PROVIDERS: ATTEND Nurse Practitioner Family
DX: Z00.01 Encounter for general adult medical examination with abnormal findings (principal)
CPT/HCPCS: 36415; 85025

== ENCOUNTER 2024-10-07 11:38 | Inpatient (IN) | payer BC, MEDICAID ==
[~2024-10-07] VITALS: Ht 165.1 cm; Wt 98.5 kg
--- NOTE | 2024-10-07 11:51 | ECG ---
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
[2024-10-07 12:27] LABS: Chloride 105 mmol/L (98-107); Potassium 3.5 mmol/L (3.5-5.1); Sodium 137 mmol/L (136-145)
[2024-10-07 12:28] LABS: Anion Gap 10 (5-15); Calcium 9.4 mg/dL (8.7-10.4); Carbon Dioxide 22 mmol/L (20-31)
[2024-10-07] MEDS ORDERED: VANCOMYCIN PER PHARMACY 0 MG IV SCH (12:30)
[2024-10-07 12:33] LABS: BUN/Creatinine Ratio 11.4 (10.0-20.0)
[2024-10-07 12:34] LABS: Blood Urea Nitrogen 8 mg/dL (9-23); Glucose 121 mg/dL (74-106)
--- NOTE | 2024-10-07 12:42 | ED.PDOC ---
History of Present Illness HPI Comments 34-year-old female with a history of hypertension, diabetes, PCOS, tachycardia, asthma and anxiety brought in by self complaining of chest pain and shortness of breath, associated with fever for the past 24 hours. Patient notes he was treated for a UTI 3 weeks ago, then subsequently developed a boil under her left breast that has been treated with multiple different courses of antibiotics. Currently she is being covered for possible MRSA cellulitis with clindamycin and doxycycline. She states she is not getting better despite taking these antibiotics. She denies any cough, congestion, abdominal pain, diarrhea or dysuria. She does have nausea. Chief Complaint: Chest Pain Time Seen by MD: 12:06 Primary Care Provider: MARGARITA Allergies: Coded Allergies: Vancomycin (Verified Allergy, Mild, 10/07/24) Home Meds Active Scripts Ondansetron Odt 4MG Tab (ZOFRAN PO) 4 Mg Tb, 4 MG PO Q6HP PRN, #20 TAB ODT TAB-DISSOLVE IN MOUTH, THEN SWALLOW Prov:COSTA COTTRELL PAC 06/06/23 Acetaminophen W/ Codeine (Tylenol W/Cod #3) 1 Tab Tb, 1 TAB PO Q6HP PRN, #20 TAB Prov:COSTA COTTRELL PAC 06/06/23 Ibuprofen Micronized (Ibuprofen) 800 Mg Tab, 800 MG PO Q8HP PRN, #20 TAB Prov:COSTA COTTRELL PAC 06/06/23 Reported Medications Dicyclomine Hcl (BENTYL CAPSULE) 10 Mg Cp, 1 CAP PO 10/07/24 Hydrocodone-Acetaminophen (Hydrocodone/Acetaminophen 10-325 mg) 1 Tab Tab, 1 TAB PO BIDPRN PRN for PAIN SCALE 7 THRU 10 10/07/24 Tirzepatide (Mounjaro) 12.5 Mg/0.5 Ml Inj 10/07/24 Metoprolol Tartrate (Metoprolol Tartrate) 25 Mg Tab, 25 MG PO HS for 30 Days, MG 10/07/24 Finerenone (Kerendia) 10 Mg Tab, 1 TAB PO QPM for RENAL DISEASE 11/09/22 Alprazolam (Xanax) 0.5 Mg Tb, 1 TAB PO DAILY PRN for ANXIETY 11/09/22 Tramadol Hcl (Tramadol Hcl) 50 Mg Tab, 1 TAB PO DAILY PRN for PAIN SCALE 7 THRU 10 11/09/22 Tirzepatide (Mounjaro) 7.5 Mg/0.5 Ml Inj, 7.5 MG SC QWEEKLY for DIABETES 11/09/22 Metoprolol Succinate (Metoprolol Succinate Er) 100 Mg Tab, 1 TAB PO QPM for HYPERTENSION 11/09/22 Benazepril Hcl (Lotensin) 20 Mg Tab, 1 TAB PO QPM for HYPERTENSION 11/09/22 Aspirin (Aspirin) 81 Mg Tab, 1 TAB PO QPM for HEART ATTACK PREVENTION 11/09/22 Albuterol Sulfate (VENTOLIN MDI) 90 Mcg Ih, 2 PUFF IN Q6HR PRN for SHORTNESS OF BREATH 07/21/21 Ibuprofen Micronized (Ibuprofen) 800 Mg Tab, 1 TAB PO TIDWM PRN for MODERATE PAIN (4-6 PAIN SCALE) 10/14/20 Metformin Hydrochloride (Metformin Hcl) 500 Mg Tab, 1 TAB PO QAM for DIABETES 10/14/20 Mode of Arrival: Ambulatory Past Medical History PAST MEDICAL HISTORY: Anxiety, Asthma, DM, HTN Past Medical History (Other): PCOS, tachycardia Surgical History: Appendectomy, Surgical History (Other): Ex lap x2 for PCOS, oophorectomy [employer] History: Ovarian Cysts Family History Family History: Reviewed,noncontributory to illness Social History Smoker: Non-Smoker Alcohol: Denies ETOH Use Drugs: Denies Drug Use Lives In: Home All Other Systems: Reviewed and Negative (Comprehensive systems review obtained and negative except for what is stated in the HPI.) Physical Exam General Appearance: Mild Distress, Obese HEENT: Other (Face symmetric. Moist mucous membranes.) Neck: Full Range of Motion, Normal Inspection Respiratory: Lungs Clear, No Accessory Muscle Use, No Respiratory Distress, Normal Breath Sounds Cardiovascular: No Edema, No JVD, Tachycardia Breast Exam: Deferred Gastrointestinal: Non Tender, Soft Genitalia: Deferred Pelvic: Deferred Rectal: Deferred Extremities: Normal inspection, Normal range of motion, Non-tender, No pedal edema Neurologic: Alert (Oriented x4), Normal Affect, Other (Somewhat anxious. Ambulatory.) Cerebellar Function: NOT DONE Reflexes: NOT DONE Skin: Dry, Warm, Other (Left lower chest wall localized erythema, soft tissue s welling and soft tissue tenderness. No fluctuance or discharge.) Lymphatic: NOT DONE Was a procedure done? Was a procedure done?: No EKG EKG : Comments Sinus tach, rate 130, normal intervals, normal axis, normal QRS, nonspecific T change. Differential Dx Considerations may include: Sepsis, chest wall cellulitis, abscess, UTI, arrhythmia, ACS, PA, anxiety, PE, electrolyte imbalance, hypovolemia/dehydration, among others X-Ray, Labs, Meds, VS Vital Signs Date Time Temp Pulse Resp B/P (MAP) Pulse Ox O2 Delivery O2 Flow Rate FiO2 10/07/24 13:35 123 16 120/62 10/07/24 13:22 133 10/07/24 13:07 127 22 120/61 10/07/24 13:05 101.8 10/07/24 13:05 101.8 10/07/24 12:40 101.8 125 20 120/61 (80) 97 101.8 10/07/24 12:40 Room Air* 0 21 10/07/24 12:00 72 10/07/24 11:50 130 10/07/24 11:49 100.0 136 22 116/77 (90) 97 100.0 Lab Test 10/07/24 12:39 10/07/24 11:53 Range/Units Lactic Acid Level 1.2 0.4-2.0 mmol/L White Blood Count 4.7 4.4-10.8 10^3/uL Red Blood Count 5.14 4.0-5.20 10^6/uL Hemoglobin 13.9 12.2-16.2 g/dL Hematocrit 41.4 36.0-46.0 % Mean Corpuscular Volume 80.5 80.0-100.0 fL Mean Corpuscular Hemoglobin 27.0 L 28.0-32.0 pg Mean Corpuscular Hemoglobin Concent 33.5 32.0-36.0 g/dL Red Cell Distribution Width 14.7 H 11.8-14.3 % Platelet Count 275 140-450 10^3/uL Mean Platelet Volume 8.6 6.9-10.8 fL Neutrophils (%) (Auto) 86.4 H 37.0-80.0 % Lymphocytes (%) (Auto) 4.9 L 10.0-50.0 % Monocytes (%) (Auto) 5.2 0.0-12.0 % Eosinophils (%) (Auto) 3.5 0.0-7.0 % Basophils (%) (Auto) 0.0 0.0-2.0 % Neutrophils # (Auto) 4.1 1.6-8.6 10 ^3/uL Lymphocytes # (Auto) 0.2 L 0.4-5.4 10 ^3/uL Monocytes # (Auto) 0.2 0-1.3 10 ^3/uL Eosinophils # (Auto) 0.2 0-0.8 10 ^3/uL Basophils # (Auto) 0 0-0.2 10 ^3/uL Nucleated Red Blood Cells 0.0 % Sodium Level 137 136-145 mmol/L Potassium Level 3.6 3.5-5.1 mmol/L Chloride Level 105 98-107 mmol/L Carbon Dioxide Level 24 20-31 mmol/L Anion Gap 8 5-15 Blood Urea Nitrogen 8 L 9-23 mg/dL Creatinine 0.73 0.550-1.02 mg/dL Glomerular Filtration Rate Calc 109 >90 mL/min BUN/Creatinine Ratio 11.0 10.0-20.0 Serum Glucose 113 H 74-106 mg/dL Calcium Level 9.4 8.7-10.4 mg/dL Total Bilirubin 0.3 0.2-1.0 mg/dL Aspartate Amino Transferase (AST) 11 L 13-40 U/L Alanine Aminotransferase (ALT) 22 7-40 U/L Alkaline Phosphatase 69 46-116 U/L Troponin I High Sensitivity < 3 L </=34 ng/L B-Type Natriuretic Peptide 10.63 0-100 pg/mL Total Protein 6.4 5.7-8.2 g/dL Albumin 4.3 3.2-4.8 g/dL Beta HCG, Quantitative 0.5 L 1.5-4.2 mIU/mL Current Medications Medications (Trade) Dose Ordered Sig/Gloria Route Start Time Stop Time Status Last Admin Sodium Chloride 2,000 ml @ 1,000 mls/hr Q2H ONCE IV 10/07/24 12:30 10/07/24 14:29 DC 10/07/24 13:25 Ondansetron HCl (Zofran) 4 mg ONCE ONCE IV 10/07/24 12:30 10/07/24 12:31 DC 10/07/24 13:06 Lorazepam (Ativan Inj) 0.5 mg ONCE ONCE IV 10/07/24 12:30 10/07/24 12:31 DC 10/07/24 13:06 Morphine Sulfate 4 mg ONCE ONCE IV 10/07/24 12:30 10/07/24 12:31 DC 10/07/24 13:07 Cefepime HCl 50 ml @ 12.5 mls/hr ONCE ONCE IV 10/07/24 12:30 10/07/24 15:07 DC 10/07/24 13:25 Acetaminophen (Tylenol Tablet Or Capsule) 1,000 mg ONCE ONCE PO 10/07/24 12:45 10/07/24 12:46 DC 10/07/24 13:05 Ibuprofen (Motrin Tablet) 800 mg ONCE ONCE PO 10/07/24 12:45 10/07/24 12:46 DC 10/07/24 13:05 Vancomycin HCl 250 ml @ 250 mls/hr Q1H IV 10/07/24 12:45 10/07/24 14:44 DC 10/07/24 15:49 PROCEDURE(s): CX2CT - CHEST WITHOUT CONTRAST REASON: L chest wall soft tissue infection r/o abscess ORDER NUMBER(s): [id number], ACCESSION NUMBER(s): [id number] EXAM: CT CHEST WITHOUT CONTRAST History: L chest wall soft tissue infection r/o abscess Comparison Study: None TECHNIQUE: Multidetector CT of the chest was performed. Imaging was performed without IV contrast. Axial, coronal, and sagittal multiplanar reformats were obtained from the axial data set by the technologist. Radiation Dose : CTDI vol 24.25 mGy, DLP 961.48 mGy*cm. Findings: Lungs: The lungs are clear. Pleura: Unremarkable Heart/Great vessels: No cardiomegaly or pericardial effusion. Mediastinum: Unremarkable Soft tissues/Bones: Minimal inflammatory changes along the left anterior chest wall, just inferior to the left breast. No focal fluid collections. Multiple slightly prominent abdominal and retroperitoneal nodes. The remaining partially visualized upper abdomen is within normal limits. Impression: 1. No acute cardiopulmonary disease. 2. Minimal inflammatory changes along the left anterior chest wall without focal fluid collections. 3. Multiple slightly prominent abdominal and retroperitoneal nodes, nonspecific. X-Ray, Labs, Meds, VS Comment 34-year-old female with a history of hypertension, diabetes, asthma, anxiety, PCOS and tachycardia complaining of chest pain, shortness of breath and a persistent left chest wall infection despite multiple courses of antibiotics Vitals remarkable for temperature 100, heart rate 136, respiratory rate 22 Exam remarkable for tachycardia and localized erythema, soft tissue swelling and tenderness left lower chest wall Rhythm strip independently interpreted by me: Sinus tach, rate 130, no ectopy. CT chest results pending CBC, CMP, BNP and troponin unremarkable, UA pending, hCG negative, lactic normal and blood cultures pending Patient treated with the following in the ED: 2 L 0.9 normal saline IV bolus, morphine 4 mg IV, Zofran 4 mg IV, Ativan 1 mg IV, Tylenol 1 g p.o., ibuprofen 800 mg p.o. On re-evaluation, symptoms have improved. Vitals are stable. Tachycardia has resolved. Plan is to admit the patient for IV antibiotics. Time of 1ST Reevaluation: 12:40 Reevaluation 1ST: Improved Patient Education/Counseling: Diagnosis, Treatment, Need For Follow Up Family Education/Counseling: No Family Present Sepsis Sepsis Reasesment Focused Exam Sepsis focused exam: focus exam completed (Capillary refill and blood pressure normal. Tachycardia improving, other vitals stable), time: (1300) Departure 1 Departure Time of Disposition: 12:41 Impression: Primary Impression: Cellulitis of chest wall Additional Impression: Tachycardia Disposition: ADMITTED INPATIENT Admit to: Tele Condition: Guarded Critical Care Note Critical Care Time?: Yes (45 min-critical care time only) Critical care comment: Critical care time including multiple bedside re-evaluations, review of lab and imaging studies, and discussion of the case with the admitting provider. Patient is high risk for hemodynamic and/or metabolic decompensation. Stability Stability form required: No Heart Score Heart Score: Heart Score Response (Comments) Value History Moderate Suspicious 1 EKG Repolarization Disturb 1 Age <45 0 Risk Factors >3 or Hx ASHD 2 Troponin Normal limit 0 Total 4 I personally scribed for ARAMIS BOWDEN MD ([email or web address]) on 10/07/24 at 16:18. Electronically submitted by Fuentes Andres ([email or web address]). ARAMIS BOWDEN MD October 07, 2024 12:42
[2024-10-07] MEDS: ACETAMINOPHEN 500 MG TAB or CAP PO ONE (13:05)
[2024-10-07] MEDS: IBUPROFEN 800 MG TAB PO ONE (13:05)
[2024-10-07] MEDS: ONDANSETRON HCL 4 MG/2 ML VIAL IV ONE (13:06)
[2024-10-07] MEDS: LORazepam 2MG/ML-1ML VIAL IV ONE (13:06)
[2024-10-07] MEDS: MORPHINE SULFATE 4 MG/ML SYR/VIAL IV ONE (13:07)
[2024-10-07 13:12] LABS: Basophils # (auto) 0 10 ^3/uL (0-0.2); Eosinophils # (auto) 0.2 10 ^3/uL (0-0.8); Eosinophils % (auto) 3.5 % (0.0-7.0); Hematocrit 41.4 % (36.0-46.0); Hemoglobin 13.9 g/dL (12.2-16.2); Lymphocytes # (auto) 0.2 10 ^3/uL (0.4-5.4); Lymphocytes % (auto) 4.9 % (10.0-50.0); Mean Corpuscular Hgb Conc. 33.5 g/dL (32.0-36.0); Mean Corpuscular Volume 80.5 fL (80.0-100.0); Monocytes # (auto) 0.2 10 ^3/uL (0-1.3); Monocytes % (auto) 5.2 % (0.0-12.0); Neutrophils # (auto) 4.1 10 ^3/uL (1.6-8.6); Neutrophils % (auto) 86.4 % (37.0-80.0); Platelet Count (auto) 275 10^3/uL (140-450); Red Blood Cells 5.14 10^6/uL (4.0-5.20); Red Cell Distribution Width 14.7 % (11.8-14.3); White Blood Cell 4.7 10^3/uL (4.4-10.8)
[2024-10-07 13:18] LABS: Alanine Aminotransferase 22 U/L (7-40); Albumin 4.3 g/dL (3.2-4.8); Alkaline Phosphatase 69 U/L (46-116); Anion Gap 8 (5-15); Calcium 9.4 mg/dL (8.7-10.4); Carbon Dioxide 24 mmol/L (20-31); Chloride 105 mmol/L (98-107); Potassium 3.6 mmol/L (3.5-5.1); Sodium 137 mmol/L (136-145); Total Protein 6.4 g/dL (5.7-8.2)
[2024-10-07 13:19] LABS: Aspartate Aminotransferase 11 U/L (13-40); Bilirubin, Total 0.3 mg/dL (0.2-1.0); Blood Urea Nitrogen 8 mg/dL (9-23); Glucose 113 mg/dL (74-106)
[2024-10-07] MEDS: CEFEPIME 2GM/50ML NS 50 ML IV ONE (13:25)
[2024-10-07] MEDS: SODIUM CHLORIDE 0.9% 2,000 ML IV ONE (13:25)
--- NOTE | 2024-10-07 14:03 | DVH ---
EXAM: CT CHEST WITHOUT CONTRAST History: L chest wall soft tissue infection r/o abscess Comparison Study: None TECHNIQUE: Multidetector CT of the chest was performed. Imaging was performed without IV contrast. Ax ial, coronal, and sagittal multiplanar reformats were obtained from the axial data set by the technol mariola. Radiation Dose : CTDI vol 24.25 mGy, DLP 961.48 mGy*cm. Findings: Lungs: The lungs are clear. Pleura: Unremarkable Heart/Great vessels: No cardiomegaly or pericardial effusion. Mediastinum: Unremarkable Soft tissues/Bones: Minimal inflammatory changes along the left anterior chest wall, just inferior to the left breast. No focal fluid collections. Multiple slightly prominent abdominal and retroperitoneal nodes. The remaining partially visualized u pper abdomen is within normal limits. Impression: 1. No acute cardiopulmonary disease. 2. Minimal inflammatory changes along the left anterior chest wall without focal fluid collections. 3. Multiple slightly prominent abdominal and retroperitoneal nodes, nonspecific.
[2024-10-07] MEDS: SODIUM CHLORIDE 0.9% 1,000 ML IV SCH (14:15)
[2024-10-07] MEDS ORDERED: MORPHINE SULFATE INJ 2 MG/ml SYRG IV PRN (14:15)
--- NOTE | 2024-10-07 14:32 | DVHHP2 ---
History of Present Illness Reason for Visit: Chest wall pain History of Present Illness This 34-year-old female presents in the ED with a chief complaint of chest pain. The patient reports left breast cellulitis, infection, for the past three weeks. The patient states she was treated with oral antibiotics with clindamycin and doxycycline but despite of antibiotics symptoms have progressed to where she developed fever, chills, shortness of breath, and chest pain for which prompted her to visit the emergency department. The patient denies dizziness, diaphoresis, chest palpitations, dyspnea, or other acute symptoms. Upon reviewing medical record, the patient undergone a coronary angiogram on 11/10/2022 with clean coronaries. Past medical history of hypertension, diabetes, PCOS, tachycardia, asthma, and anxiety. Past Medical History As stated in HPI Past Surgical History Left coronary angiogram Family History Reviewed, non-contributory to the management of this case. Past Social History The patient lives at home, denies smoking, alcohol or illicit drugs abuse. Review of Systems Constitutional: Yes: Malaise; No: Fever, Chills, Sweats, Weakness, Other Eyes: No: Pain, Vision change, Conjunctivae inflammation, Eyelid inflammation, Other, Redness ENT: No: Ear pain, Ear discharge, Nose pain, Nose discharge, Nose congestion, Mouth pain, Mouth swelling, Throat pain, Throat swelling, Other Respiratory: No: Cough, Dry, Shortness of breath, SOB with excertion, Wheezing, Hemoptysis, Pleuritic Pain, Sputum, Wheezing, Other Cardiovascular: No: Chest Pain, Palpitations, Orthopnea, Paroxysmal Noc. Dyspnea, Edema, Lt Headedness, Other Gastrointestinal: No: Nausea, Vomiting, Abdominal Pain, Diarrhea, Constipation, Melena, Hematochezia, Other Genitourinary: No Dysuria, No Frequency, No Incontinence, No Hematuria, No Retention, No Other Musculoskeletal: No: other, neck pain, shoulder pain, arm pain, back pain, hand pain, leg pain, foot pain Skin: Rash, Lesions, Other ( chest cellulitis); No: Jaundice, Bruising Neurological: No: Weakness, Numbness, Incoordination, Change in speech, Confusion, Seizures, Other Allergies: Coded Allergies: NO KNOWN ALLERGIES (Unverified , 11/09/22) Medications Current Medications Medications Dose Ordered Sig/Gloria Route Start Time Stop Time Status Last Admin Dose Admin Vancomycin HCl 0 ml @ 0 mls/hr UD IV 10/07/24 12:30 Vancomycin HCl 250 ml @ 250 mls/hr Q1H IV 10/07/24 12:45 10/07/24 14:44 Exam Vital Signs Vital Signs Date Time Temp Pulse Resp B/P (MAP) Pulse Ox O2 Delivery O2 Flow Rate FiO2 10/07/24 13:22 133 10/07/24 13:07 22 120/61 10/07/24 13:05 101.8 10/07/24 11:49 97 Exam left chest with erythema, tenderness, warmth to touch General Appearance: Alert, Oriented X3, Cooperative, mild distress HEENT: Atraumatic, PERRLA, EOMI, Mucous membr. moist/pink Respiratory: Clear to auscultation, Normal air movement Cardiovascular: Regular rate, Normal S1 Abdominal: Normal bowel sounds, Soft, No tenderness Extremities: No clubbing, No cyanosis, No edema Neuro: Normal speech Psych/Mental Status: Mental status NL Labs/Xrays Labs Test 10/07/24 12:39 10/07/24 11:53 Range/Units Lactic Acid Level 1.2 0.4-2.0 mmol/L White Blood Count 4.7 4.4-10.8 10^3/uL Red Blood Count 5.14 4.0-5.20 10^6/uL Hemoglobin 13.9 12.2-16.2 g/dL Hematocrit 41.4 36.0-46.0 % Mean Corpuscular Volume 80.5 80.0-100.0 fL Mean Corpuscular Hemoglobin 27.0 L 28.0-32.0 pg Mean Corpuscular Hemoglobin Concent 33.5 32.0-36.0 g/dL Red Cell Distribution Width 14.7 H 11.8-14.3 % Platelet Count 275 140-450 10^3/uL Mean Platelet Volume 8.6 6.9-10.8 fL Neutrophils (%) (Auto) 86.4 H 37.0-80.0 % Lymphocytes (%) (Auto) 4.9 L 10.0-50.0 % Monocytes (%) (Auto) 5.2 0.0-12.0 % Eosinophils (%) (Auto) 3.5 0.0-7.0 % Basophils (%) (Auto) 0.0 0.0-2.0 % Neutrophils # (Auto) 4.1 1.6-8.6 10 ^3/uL Lymphocytes # (Auto) 0.2 L 0.4-5.4 10 ^3/uL Monocytes # (Auto) 0.2 0-1.3 10 ^3/uL Eosinophils # (Auto) 0.2 0-0.8 10 ^3/uL Basophils # (Auto) 0 0-0.2 10 ^3/uL Nucleated Red Blood Cells 0.0 % Sodium Level 137 136-145 mmol/L Potassium Level 3.6 3.5-5.1 mmol/L Chloride Level 105 98-107 mmol/L Carbon Dioxide Level 24 20-31 mmol/L Anion Gap 8 5-15 Blood Urea Nitrogen 8 L 9-23 mg/dL Creatinine 0.73 0.550-1.02 mg/dL Glomerular Filtration Rate Calc 109 >90 mL/min BUN/Creatinine Ratio 11.0 10.0-20.0 Serum Glucose 113 H 74-106 mg/dL Calcium Level 9.4 8.7-10.4 mg/dL Total Bilirubin 0.3 0.2-1.0 mg/dL Aspartate Amino Transferase (AST) 11 L 13-40 U/L Alanine Aminotransferase (ALT) 22 7-40 U/L Alkaline Phosphatase 69 46-116 U/L B-Type Natriuretic Peptide 10.63 0-100 pg/mL Total Protein 6.4 5.7-8.2 g/dL Albumin 4.3 3.2-4.8 g/dL Beta HCG, Quantitative 0.5 L 1.5-4.2 mIU/mL ROCEDURE(s): CX2CT - CHEST WITHOUT CONTRAST REASON: L chest wall soft tissue infection r/o abscess ORDER NUMBER(s): [id number], ACCESSION NUMBER(s): [id number] EXAM: CT CHEST WITHOUT CONTRAST History: L chest wall soft tissue infection r/o abscess Comparison Study: None TECHNIQUE: Multidetector CT of the chest was performed. Imaging was performed without IV contrast. Axial, coronal, and sagittal multiplanar reformats were obtained from the axial data set by the technologist. Radiation Dose : CTDI vol 24.25 mGy, DLP 961.48 mGy*cm. Findings: Lungs: The lungs are clear. Pleura: Unremarkable Heart/Great vessels: No cardiomegaly or pericardial effusion. Mediastinum: Unremarkable Soft tissues/Bones: Minimal inflammatory changes along the left anterior chest wall, just inferior to the left breast. No focal fluid collections. Multiple slightly prominent abdominal and retroperitoneal nodes. The remaining partially visualized upper abdomen is within normal limits. Impression: 1. No acute cardiopulmonary disease. 2. Minimal inflammatory changes along the left anterior chest wall without focal fluid collections. 3. Multiple slightly prominent abdominal and retroperitoneal nodes, nonspecific. Assessment/Plan Assessment/Plan # Rule out Sepsis # Left breast cellulitis, abscess ruled out Admit to M/S unit Empiric antibiotics Blood culture IV fluid resuscitation # hypertension # tachycardia Continue with metoprolol Hydralazine as needed check tsh Monitor # diabetes check a1c, lipid panel Tirzapatide # anxiety Alprazolam prn # obesity Currently on Tirzapatide Lifestyle modification counseled with diet and regular exercise Medical plan discussed with patient Plan discussed with: Patient My Orders Orders - TAMIR GOFF Procedure Category Date Status Time Admit ADMIT 10/07/24 Transmitted 14:10 Code Status CODE 10/07/24 Transmitted 14:10 Sodium Chloride 0.9% PHA 10/07/24 Logged 14:15 Hydrocodone-Acet PHA 10/07/24 Logged 5/325mg Tab (Sewaren 14:15 Ondansetron Hcl PHA 10/07/24 Logged (Zofran) 14:15 Complete Blood Count LAB 10/08/24 Verified 04:00 Comprehensive LAB 10/08/24 Verified Metabolic Panel 04:00 Cardiac DIET 10/07/24 Transmitted Diet-2gna,Lofat,Lochol Dinner Condition: Fair KETURAH 10/07/24 In Process 14:10 Acetaminophen Tablet PHA 10/07/24 Logged (Tylenol Tablet) 14:15 Morphine Sulfate PHA 10/07/24 Logged Injection 14:15 Piperacillin-Tazob PHA 10/07/24 Logged 3.375gm (Zosyn 3.375g 18:00 Clindamycin 600mg Iv PHA 10/07/24 Logged (Cleocin Iv) 22:00 Blood Culture NELLY 10/07/24 Logged 14:17 Date of Service: October 07, 2024 Billing Provider: TAMIR GOFF Common Visit Codes: [id number] INP/OBS CARE (HIGH) Consultation Codes: [id number] CONSULT <45MIN TAMIR GOFFP October 07, 2024 14:32
[2024-10-07] MEDS: VANCOMYCIN 1GM/200ML PM 250 ML IV SCH (14:39)
[2024-10-07 17:11] LABS: Urine Bacteria None Seen /hpf (None Seen)
[2024-10-07 17:22] LABS: Urine Blood Negative /uL (Negative); Urine Clarity Clear (Clear); Urine Color Colorless (Yellow); Urine Protein, UAD Negative (Negative); Urine Specific Gravity 1.006 (1.001-1.035); Urine Squamous Epithelial Cell FEW /hpf (<5); Urine Urobilinogen Normal (Negative); Urine WBC 1 /HPF (0-5); Urine pH 6.5 (5.0-9.0)
[2024-10-07] MEDS: diphenhdrAMINE HCL 50 MG/1 ML VL IV ONE (17:54)
[2024-10-07 18:18] VITALS: BP 99/56; PULSE 107; RESP 19; TEMP 98.3; O2SAT 97
[2024-10-07 18:28] VITALS: BP 99/56; PULSE 107; RESP 16; RESP 19; TEMP 98.3; O2SAT 97
[2024-10-07] MEDS: PIPERACILLIN-TAZOB 3.375GM 100 ML IV SCH (18:43)
[2024-10-07 20:00] VITALS: PULSE 125; RESP 19; O2SAT 99
[2024-10-07] MEDS ORDERED: HYDR-4072 PO (20:05)
[2024-10-07] MEDS ORDERED: METO25TA5 PO (20:05)
[2024-10-07] MEDS ORDERED: TIRZ12.5 (20:05)
[2024-10-07] MEDS ORDERED: DICY10CA PO (20:05)
[2024-10-07 21:00] VITALS: BP 109/53; PULSE 125; RESP 19; TEMP 99.9; O2SAT 99
[2024-10-07] MEDS: ONDANSETRON HCL 4 MG/2 ML VIAL IV PRN (21:22)
[2024-10-07] MEDS: ACETAMINOPHEN 325 MG TAB PO PRN (21:22)
[2024-10-07] MEDS ORDERED: CLINDAMYCIN 600MG IV 50 ML IV SCH (22:00)
[2024-10-07 23:35] VITALS: TEMP 98.9
[2024-10-07] MEDS: METOPROLOL TARTRATE 25 MG TAB PO ONE (23:35)
[2024-10-07] MEDS: CLINDAMYCIN 300MG IV 50 ML IV SCH (23:36)
[2024-10-08] VITALS (8 sets, daily range): BP systolic 100–112; BP diastolic 53–62; PULSE 105–123; RESP 18–20; TEMP 98.9–101.9; O2SAT 94–100
[2024-10-08] MEDS ORDERED: VANCOMYCIN 1.25GM/250ML 250 ML IV SCH (04:00)
[2024-10-08 06:07] LABS: Basophils # (auto) 0 10 ^3/uL (0-0.2); Basophils % (auto) 0.1 % (0.0-2.0); Eosinophils # (auto) 0.1 10 ^3/uL (0-0.8); Eosinophils % (auto) 2.4 % (0.0-7.0); Hematocrit 39.6 % (36.0-46.0); Hemoglobin 13.3 g/dL (12.2-16.2); Lymphocytes # (auto) 0.2 10 ^3/uL (0.4-5.4); Lymphocytes % (auto) 6.3 % (10.0-50.0); Mean Corpuscular Hemoglobin 27.2 pg (28.0-32.0); Mean Corpuscular Hgb Conc. 33.6 g/dL (32.0-36.0); Mean Corpuscular Volume 80.9 fL (80.0-100.0); Monocytes # (auto) 0.1 10 ^3/uL (0-1.3); Monocytes % (auto) 4.5 % (0.0-12.0); Neutrophils # (auto) 2.1 10 ^3/uL (1.6-8.6); Neutrophils % (auto) 86.7 % (37.0-80.0); Nucleated Red Blood Cells % 0.1 %; Platelet Count (auto) 215 10^3/uL (140-450); Red Cell Distribution Width 14.9 % (11.8-14.3); White Blood Cell 2.5 10^3/uL (4.4-10.8)
[2024-10-08 06:31] LABS: Anion Gap 9 (5-15); BUN/Creatinine Ratio 8.5 (10.0-20.0); Bilirubin, Total 0.3 mg/dL (0.2-1.0); Carbon Dioxide 22 mmol/L (20-31); Chloride 106 mmol/L (98-107); Potassium 3.8 mmol/L (3.5-5.1); Sodium 137 mmol/L (136-145); Total Protein 6.1 g/dL (5.7-8.2)
[2024-10-08 06:33] LABS: Alanine Aminotransferase 102 U/L (7-40); Alkaline Phosphatase 126 U/L (46-116); Aspartate Aminotransferase 69 U/L (13-40); Blood Urea Nitrogen 7 mg/dL (9-23); Calcium 8.2 mg/dL (8.7-10.4); Glucose 111 mg/dL (74-106)
[2024-10-08] MEDS: METOPROLOL TARTRATE 25 MG TAB PO SCH (09:14)
[2024-10-08] MEDS ORDERED: DOXY100C4 PO (10:53)
[2024-10-08] MEDS ORDERED: CLIN150C PO (10:54)
[2024-10-08] MEDS: HYDROcodone-ACET 5/325MG TAB PO PRN (12:06)
--- NOTE | 2024-10-08 14:42 | DVHPN2 ---
Subjective Patient reports having headache, intermittent fevers, itching and pain to cellulitis area. Reviewed: Care Plan, H&P, Labs, Medications, Previous Orders Changes from previous H/P or p: No Changes General: Per HPI Eyes: No Pain, No Vision change, No Conjunctivae inflammation, No Eyelid inflammation, No Other, No Redness ENT: No Ear pain, No Ear discharge, No Nose pain, No Nose discharge, No Nose congestion, No Mouth pain, No Mouth swelling, No Throat pain, No Throat swelling, No Other Cardiovascular: No Chest Pain, No Palpitations, No Orthopnea, No Paroxysmal Noc. Dyspnea, No Edema, No Lt Headedness, No Other Respiratory: No Cough, No Dry, No Shortness of breath, No SOB with excertion, No Wheezing, No Hemoptysis, No Pleuritic Pain, No Sputum, No Other Gastrointestinal: No Nausea, No Vomiting, No Abdominal Pain, No Diarrhea, No Constipation, No Melena, No Hematochezia, No Other Genitourinary: No Dysuria, No Frequency, No Incontinence, No Hematuria, No Retention, No Other Musculoskeletal: No other, No neck pain, No shoulder pain, No arm pain, No back pain, No hand pain, No leg pain, No foot pain Skin: Rash, Lesions; No Jaundice, No Bruising; Other ( chest cellulitis) Objective Vitals Vital Signs Date Time Temp Pulse Resp B/P (MAP) Pulse Ox O2 Delivery O2 Flow Rate FiO2 10/08/24 10:14 109 107/60 10/08/24 09:00 98.9 20 97 98.9 10/08/24 07:54 Room Air* 0 21 Intake/Output Intake and Output 10/08/24 07:00 Intake Total 3862.5 ml Balance 3862.5 ml Intake Oral 875 ml IV Total 2987.5 ml # Voids 4 General Appearance: Alert, Oriented X3, Cooperative, mild distress HEENT: Atraumatic, PERRLA Lungs: Clear to auscultation, Normal air movement Cardiovascular: Normal S1, Normal S2 Abdomen: Normal bowel sounds, Soft, No tenderness Musculoskeletal: Normal sensory function, Normal motor function Skin: Dry, Intact Psych/Mental Status: Mental status NL, Mood NL Medications Current Medications Medications Dose Ordered Sig/Gloria Route Start Time Stop Time Status Last Admin Dose Admin Sodium Chloride 1,000 ml @ 100 mls/hr Q10H IV 5/11/25 14:15 10/08/24 09:18 100 MLS/HR Acetaminophen/ Hydrocodone Bitart 1 tab Q4HP PRN PO 10/07/24 14:15 10/08/24 12:06 1 TAB Ondansetron HCl 4 mg Q4HP PRN IV 10/07/24 14:15 10/08/24 12:06 4 MG Acetaminophen 650 mg Q6HP PRN PO 10/07/24 14:15 10/08/24 05:07 650 MG Morphine Sulfate 2 mg Q4HPRN PRN IV 10/07/24 14:15 Piperacillin Sod/ Tazobactam Sod 100 ml @ 25 mls/hr Q6HR IV 10/07/24 18:00 10/08/24 12:06 25 MLS/HR Alprazolam 0.5 mg QHSP PRN PO 10/07/24 20:00 Tramadol HCl 50 mg Q6HP PRN PO 10/08/24 14:30 UNV Saccharomyces Boulardii 250 mg DAILY PO 10/08/24 14:30 UNV Metoprolol Succinate 25 mg DAILY PO 10/09/24 10:00 UNV Laboratory Results Laboratory Tests 10/08/24 05:16 Chemistry Test 10/08/24 05:16 Albumin 4.0 g/dL (3.2-4.8) Calcium Level 8.2 mg/dL (8.7-10.4) L Total Protein 6.1 g/dL (5.7-8.2) LFT Test 10/08/24 05:16 Alanine Aminotransferase (ALT) 102 U/L (7-40) H Alkaline Phosphatase 126 U/L (46-116) H Aspartate Amino Transferase (AST) 69 U/L (13-40) H Total Bilirubin 0.3 mg/dL (0.2-1.0) Urinalysis Test 10/07/24 15:58 Urine Color Colorless (Yellow) Urine Clarity Clear (Clear) Urine pH 6.5 (5.0-9.0) Urine Specific [place] 1.006 (1.001-1.035) Urine Protein Negative (Negative) Urine Ketones Negative (Negative) Urine Blood Negative /uL (Negative) Urine Nitrite Negative (Negative) Urine Bilirubin Negative (Negative) Urine Urobilinogen Normal mg/dL (Negative) Urine Leukocyte Esterase Negative /uL (Negative) Urine RBC 1 /hpf (0 - 4) Urine Microscopic WBC 1 /HPF (0-5) Urine Squamous Epithelial Cells Few /hpf (<5) Urine Bacteria None seen /hpf (None Seen) Urine Glucose Normal mg/dL (Normal) Microbiology Microbiology Date/Time Source Procedure Growth Status 10/07/24 12:39 Blood Blood Culture - Preliminary NO GROWTH AFTER 24 HOURS OF INCUBATION. Resulted Labs and/or images reviewed: Labs reviewed by me, Image(s) reviewed by me Assessment/Plan Assessment/Plan Impression: -left upper quadrant cellulitis -obesity -primary hypertension -tachycardia -rule out sepsis with noted fevers Plan: -stop clindamycin, continue Zosyn -add Florastor given patient's history of C diff -check ESR, CRP -patient reporting having kidney pain and having UTI. Urinalysis negative for UTI -repeat labs in a.m. -continue IV hydration Total time spent with patient discussing and formulating plan of care: 35 minutes. This medical document was created using an electronic medical record system with [employer] dictation system. Although this document has been carefully reviewed, there may still be some phonetic and typographical errors. These areas are purely typographical due to imperfections of the software programs, and do not reflect any compromise in the patient's medical care. Plan discussed with: Patient, Other (RN) My Orders Orders - ALICE AGUIRRE NP Procedure Category Date Status Time Tramadol Hcl (Ultram) PHA 10/08/24 Logged 14:30 Florastor (S. PHA 10/08/24 Logged Boulardii) (Florastor) 14:30 Comprehensive LAB 10/09/24 Verified Metabolic Panel 04:00 Metoprolol Xl PHA 10/09/24 Logged Succinate (Toprol Xl) 10:00 Erythrocyte LAB 10/09/24 Verified Sedimentation Rate 04:00 C-Reactive Protein LAB 10/09/24 Verified 04:00 Date of Service: October 08, 2024 Billing Provider: ALICE AGUIRRE NP Common Visit Codes: [id number] INP/OBS CARE(HIGH) ALICE AGUIRRE NP October 08, 2024 14:42
[2024-10-08] MEDS: FLORASTOR (S. BOULARDII) 250 MG CAP PO SCH (15:27)
[2024-10-08] MEDS: traMADol HCL 50 MG TAB PO PRN (15:49)
[2024-10-08] MEDS: ALPRAZolam 0.5 MG TAB PO PRN (21:14)
[2024-10-09] VITALS (8 sets, daily range): BP systolic 113–125; BP diastolic 59–67; PULSE 97–107; RESP 17–20; TEMP 97.9–100.7; O2SAT 94–99
[2024-10-09 07:52] LABS: Alkaline Phosphatase 113 U/L (46-116); Anion Gap 11 (5-15); Aspartate Aminotransferase 36 U/L (13-40); Calcium 8.9 mg/dL (8.7-10.4); Carbon Dioxide 21 mmol/L (20-31); Chloride 104 mmol/L (98-107); Glucose 99 mg/dL (74-106); Potassium 3.6 mmol/L (3.5-5.1); Total Protein 6.4 g/dL (5.7-8.2)
[2024-10-09 07:53] LABS: Bilirubin, Total 0.3 mg/dL (0.2-1.0)
[2024-10-09 07:54] LABS: Alanine Aminotransferase 78 U/L (7-40); Blood Urea Nitrogen 7 mg/dL (9-23); Sodium 136 mmol/L (136-145)
[2024-10-09 08:05] LABS: CRP High Sensitivity 4.87 mg/dL (<1.0)
[2024-10-09 08:41] LABS: Erythrocyte Sedimentation Rate 9 mm/hr (0-20)
[2024-10-09] MEDS: METOPROLOL SUCCINATE XL 50 MG TAB PO SCH (09:47)
--- NOTE | 2024-10-09 13:19 | DVHPN2 ---
Subjective Patient continues to have fevers. Anxious about having persistent fevers. Reviewed: Care Plan, H&P, Labs, Medications, Previous Orders Changes from previous H/P or p: No Changes General: Per HPI Eyes: No Pain, No Vision change, No Conjunctivae inflammation, No Eyelid inflammation, No Other, No Redness ENT: No Ear pain, No Ear discharge, No Nose pain, No Nose discharge, No Nose congestion, No Mouth pain, No Mouth swelling, No Throat pain, No Throat swelling, No Other Cardiovascular: No Chest Pain, No Palpitations, No Orthopnea, No Paroxysmal Noc. Dyspnea, No Edema, No Lt Headedness, No Other Respiratory: No Cough, No Dry, No Shortness of breath, No SOB with excertion, No Wheezing, No Hemoptysis, No Pleuritic Pain, No Sputum, No Other Gastrointestinal: No Nausea, No Vomiting, No Abdominal Pain, No Diarrhea, No Constipation, No Melena, No Hematochezia, No Other Genitourinary: No Dysuria, No Frequency, No Incontinence, No Hematuria, No Retention, No Other Musculoskeletal: No other, No neck pain, No shoulder pain, No arm pain, No back pain, No hand pain, No leg pain, No foot pain Skin: Rash, Lesions; No Jaundice, No Bruising; Other ( chest cellulitis) Objective Vitals Vital Signs Date Time Temp Pulse Resp B/P (MAP) Pulse Ox O2 Delivery O2 Flow Rate FiO2 10/09/24 09:47 99 119/59 10/09/24 09:00 99.2 20 98 99.2 10/09/24 07:39 Room Air* 0 21 Intake/Output Intake and Output 10/09/24 07:00 Intake Total 2085 ml Balance 2085 ml Intake Oral 1235 ml IV Total 850 ml # Voids 8 # Bowel Movements 3 General Appearance: Alert, Oriented X3, Cooperative, mild distress HEENT: Atraumatic, PERRLA Lungs: Clear to auscultation, Normal air movement Cardiovascular: Normal S1, Normal S2 Abdomen: Normal bowel sounds, Soft, No tenderness Musculoskeletal: Normal sensory function, Normal motor function Skin: Dry, Intact Psych/Mental Status: Mental status NL, Mood NL Medications Current Medications Medications Dose Ordered Sig/Gloria Route Start Time Stop Time Status Last Admin Dose Admin Sodium Chloride 1,000 ml @ 100 mls/hr Q10H IV 10/07/24 14:15 10/08/24 09:18 100 MLS/HR Acetaminophen/ Hydrocodone Bitart 1 tab Q4HP PRN PO 10/07/24 14:15 10/08/24 12:06 1 TAB Ondansetron HCl 4 mg Q4HP PRN IV 10/07/24 14:15 10/09/24 11:58 4 MG Acetaminophen 650 mg Q6HP PRN PO 10/07/24 14:15 10/09/24 11:58 650 MG Morphine Sulfate 2 mg Q4HPRN PRN IV 10/07/24 14:15 Piperacillin Sod/ Tazobactam Sod 100 ml @ 25 mls/hr Q6HR IV 10/07/24 18:00 10/09/24 11:58 25 MLS/HR Alprazolam 0.5 mg QHSP PRN PO 10/07/24 20:00 10/08/24 21:14 0.5 MG Saccharomyces Boulardii 250 mg DAILY PO 10/08/24 14:30 10/09/24 09:45 250 MG Metoprolol Succinate 25 mg DAILY PO 10/09/24 10:00 10/09/24 09:47 25 MG Laboratory Results Laboratory Tests 10/08/24 05:16 10/09/24 06:35 Chemistry Test 10/09/24 06:35 Albumin 4.0 g/dL (3.2-4.8) Calcium Level 8.9 mg/dL (8.7-10.4) Total Protein 6.4 g/dL (5.7-8.2) LFT Test 10/09/24 06:35 Alanine Aminotransferase (ALT) 78 U/L (7-40) H Alkaline Phosphatase 113 U/L (46-116) Aspartate Amino Transferase (AST) 36 U/L (13-40) Total Bilirubin 0.3 mg/dL (0.2-1.0) Urinalysis Test 10/07/24 15:58 Urine Color Colorless (Yellow) Urine Clarity Clear (Clear) Urine pH 6.5 (5.0-9.0) Urine Specific [place] 1.006 (1.001-1.035) Urine Protein Negative (Negative) Urine Ketones Negative (Negative) Urine Blood Negative /uL (Negative) Urine Nitrite Negative (Negative) Urine Bilirubin Negative (Negative) Urine Urobilinogen Normal mg/dL (Negative) Urine Leukocyte Esterase Negative /uL (Negative) Urine RBC 1 /hpf (0 - 4) Urine Microscopic WBC 1 /HPF (0-5) Urine Squamous Epithelial Cells Few /hpf (<5) Urine Bacteria None seen /hpf (None Seen) Urine Glucose Normal mg/dL (Normal) Microbiology Microbiology Date/Time Source Procedure Growth Status 10/07/24 12:39 Blood Blood Culture - Preliminary NO GROWTH AFTER 48 HOURS OF INCUBATION. Resulted Labs and/or images reviewed: Labs reviewed by me, Image(s) reviewed by me Assessment/Plan Assessment/Plan Impression: -left upper quadrant cellulitis -obesity -primary hypertension -tachycardia -rule out sepsis with noted fevers Plan: Events: Patient had temp of 101.9 yesterday evening. ESR negative. Mild elevation in CRP. LFTs improved. Discussed case with patient regarding pain management, with respect to [place] possibly being etiology for elevated liver function tests. Apparently, patient's became upset in use yusuf and language with primary nurse. Discussion made with the patient regarding antibiotic coverage and problems with changing from vancomycin, and clindamycin, in addition having previous antibiotic therapy with doxycycline, and now Zosyn. Patient also reports having a history of C diff, for which she was placed on Florastor at this time. Given fever of unknown origin, patient will have CT scan of the abdomen and pelvis with IV contrast. -continue Zosyn. -add Florastor given patient's history of C diff -check ESR, CRP -patient reporting having kidney pain and having UTI. Urinalysis negative for UTI -repeat labs in a.m. -continue IV hydration Total time spent with patient discussing and formulating plan of care: 35 minutes. This medical document was created using an electronic medical record system with [employer] dictation system. Although this document has been carefully reviewed, there may still be some phonetic and typographical errors. These areas are purely typographical due to imperfections of the software programs, and do not reflect any compromise in the patient's medical care. Plan discussed with: Patient, Other (RN) My Orders Orders - ALICE AGUIRRE [employer]INE[employer] Procedure Category Date Status Time Florastor (S. PHA 10/08/24 In Process Boulardii) (Florastor) 14:30 Metoprolol Xl PHA 10/09/24 In Process Succinate (Toprol Xl) 10:00 Comprehensive LAB 10/10/24 Verified Metabolic Panel 04:00 Ct Ab Pel With Iv Con CT 10/09/24 Logged Only 13:10 Ibuprofen Tablet PHA 10/09/24 Logged (Motrin Tablet) 13:15 Date of Service: October 09, 2024 Billing Provider: ALICE AGUIRRE NP Common Visit Codes: [id number] INP/OBS CARE(HIGH) ALICE AGUIRRE NP October 09, 2024 13:19
[2024-10-09] MEDS ORDERED: IOHEXOL 300 MG/ML 100ML BOTTLE IJ ONE (15:35)
--- NOTE | 2024-10-09 16:10 | DVH ---
Exam: CT CT AB PEL WITH IV CON ONLY History: sepsis, abdominal pain, COMPARISON: CT AB PEL WITH IV CON ONLY on DOS: 02/03/21 Technique: Multidetector spiral CT of the abdomen and pelvis was performed from lung bases to pubic symphysis. Intravenous contrast was administered during this examination. Portal venous imaging was obtained. Axial, coronal and sagittal multiplanar reformats were performed by the technologist on a separate workstation. Radiation Dose : Abdomen/Pelvis: CTDIvol 20.15 mGy, DLP 1120.4 mGy*cm. CONTRAST: Type of contrast: Omni 300 Contrast injected: 100 mL Findings: Lung Bases: No acute or significant lung base finding. Normal heart size. No pleural or pericardial effusion. Liver: The liver is normal in size. No focal lesions. Normal hepatic vascular enhancement. Gallbladder and biliary Tree: Unremarkable Spleen: Unremarkable Pancreas: The pancreas is normal in appearance without focal lesions or abnormal enhancement. Adrenal Glands: Unremarkable Kidneys: No hydronephrosis. Bladder: Unremarkable Bowel: The stomach is grossly normal in appearance. Small bowel and colon are normal in caliber and d istribution. The appendix is not visualized; however, no secondary findings of acute appendicitis kenyetta ntified. Ascites: Trace free fluid in the pelvis is likely physiologic. Lymphadenopathy: Subcentimeter right lower quadrant lymph nodes again noted. Abdominal wall and Mesentery: Unremarkable. Vasculature: The visualized abdominal aorta is normal in size and caliber. Abdominal and pelvic vess els demonstrate normal enhancement. Pelvic Organs: Left ovarian cysts. Musculoskeletal: No aggressive focal bony lesions, acute fractures or dislocation. IMPRESSION: 1. No acute abdominal or pelvic finding. Subcentimeter right lower quadrant lymph nodes again noted. Left ovarian cysts. Radiation optimization: All CT scans at this facility use at least one of these dose optimization eliezer hniques: Automated exposure control mA and/or kV adjustment per patient size (includes targeted exams where dose is matched to clinical indication) or iterative reconstruction. HS:Y
[2024-10-09] MEDS: IBUPROFEN 600 MG TAB PO ONE (18:05)
[2024-10-10] VITALS (8 sets, daily range): BP systolic 91–142; BP diastolic 42–98; PULSE 75–124; RESP 14–20; TEMP 97.6–100.8; O2SAT 95–99
[2024-10-10 06:59] LABS: Alanine Aminotransferase 55 U/L (7-40); Alkaline Phosphatase 94 U/L (46-116); Anion Gap 11 (5-15); Aspartate Aminotransferase 26 U/L (13-40); Blood Urea Nitrogen 9 mg/dL (9-23); Calcium 8.4 mg/dL (8.7-10.4); Carbon Dioxide 21 mmol/L (20-31); Chloride 104 mmol/L (98-107); Glucose 89 mg/dL (74-106); Potassium 3.6 mmol/L (3.5-5.1); Sodium 136 mmol/L (136-145)
[2024-10-10 07:01] LABS: Bilirubin, Total 0.3 mg/dL (0.2-1.0)
[2024-10-10 16:23] LABS: Erythrocyte Sedimentation Rate 8 mm/hr (0-20)
[2024-10-10] MEDS: CLINDAMYCIN HCL 150 MG CAP PO SCH (16:35)
--- NOTE | 2024-10-10 17:46 | DVHPN2 ---
Subjective Seen and examined at bedside, unknown cause of fevers. Will check Flu and Covid and Hep Panel. Give Clinda PO for now and Nystatin Powder to apply under the breast. Monitor fevers. Reviewed: Care Plan, H&P, Labs, Medications, Previous Orders Changes from previous H/P or p: No Changes General: Per HPI Eyes: No Pain, No Vision change, No Conjunctivae inflammation, No Eyelid inflammation, No Other, No Redness ENT: No Ear pain, No Ear discharge, No Nose pain, No Nose discharge, No Nose congestion, No Mouth pain, No Mouth swelling, No Throat pain, No Throat swelling, No Other Cardiovascular: No Chest Pain, No Palpitations, No Orthopnea, No Paroxysmal Noc. Dyspnea, No Edema, No Lt Headedness, No Other Respiratory: No Cough, No Dry, No Shortness of breath, No SOB with excertion, No Wheezing, No Hemoptysis, No Pleuritic Pain, No Sputum, No Other Gastrointestinal: No Nausea, No Vomiting, No Abdominal Pain, No Diarrhea, No Constipation, No Melena, No Hematochezia, No Other Genitourinary: No Dysuria, No Frequency, No Incontinence, No Hematuria, No Retention, No Other Musculoskeletal: No other, No neck pain, No shoulder pain, No arm pain, No back pain, No hand pain, No leg pain, No foot pain Skin: Rash, Lesions; No Jaundice, No Bruising; Other ( chest cellulitis) Objective Vitals Vital Signs Date Time Temp Pulse Resp B/P (MAP) Pulse Ox O2 Delivery O2 Flow Rate FiO2 10/10/24 17:00 99.4 91 16 122/55 (77) 98 99.4 10/10/24 08:00 Room Air* 0 21 Intake/Output Intake and Output 10/10/24 07:00 Intake Total 920 ml Balance 920 ml Intake Oral 620 ml IV Total 300 ml # Voids 8 # Bowel Movements 2 General Appearance: Alert, Oriented X3, Cooperative, mild distress HEENT: Atraumatic, PERRLA Lungs: Clear to auscultation, Normal air movement Chest/Breasts: Other (Examined with RN. Mild rendess under left Breast) Cardiovascular: Normal S1, Normal S2 Abdomen: Normal bowel sounds, Soft, No tenderness Musculoskeletal: Normal sensory function, Normal motor function Skin: Dry, Intact Psych/Mental Status: Mental status NL, Mood NL Medications Current Medications Medications Dose Ordered Sig/Gloria Route Start Time Stop Time Status Last Admin Dose Admin Acetaminophen/ Hydrocodone Bitart 1 tab Q4HP PRN PO 10/07/24 14:15 10/08/24 12:06 1 TAB Ondansetron HCl 4 mg Q4HP PRN IV 10/07/24 14:15 10/09/24 11:58 4 MG Acetaminophen 650 mg Q6HP PRN PO 10/07/24 14:15 10/10/24 14:30 650 MG Morphine Sulfate 2 mg Q4HPRN PRN IV 10/07/24 14:15 Alprazolam 0.5 mg QHSP PRN PO 10/07/24 20:00 10/08/24 21:14 0.5 MG Saccharomyces Boulardii 250 mg DAILY PO 10/08/24 14:30 10/10/24 08:57 250 MG Metoprolol Succinate 25 mg DAILY PO 10/09/24 10:00 10/10/24 08:57 25 MG Clindamycin HCl 300 mg Q8HR PO 10/10/24 15:41 10/10/24 16:35 300 MG Nystatin 1 applic BID TOP 10/10/24 22:00 Laboratory Results Laboratory Tests 10/08/24 05:16 10/10/24 05:18 Chemistry Test 10/10/24 05:18 Albumin 4.0 g/dL (3.2-4.8) Calcium Level 8.4 mg/dL (8.7-10.4) L Total Protein 6.0 g/dL (5.7-8.2) LFT Test 10/10/24 05:18 Alanine Aminotransferase (ALT) 55 U/L (7-40) H Alkaline Phosphatase 94 U/L (46-116) Aspartate Amino Transferase (AST) 26 U/L (13-40) Total Bilirubin 0.3 mg/dL (0.2-1.0) Urinalysis Test 10/07/24 15:58 Urine Color Colorless (Yellow) Urine Clarity Clear (Clear) Urine pH 6.5 (5.0-9.0) Urine Specific [place] 1.006 (1.001-1.035) Urine Protein Negative (Negative) Urine Ketones Negative (Negative) Urine Blood Negative /uL (Negative) Urine Nitrite Negative (Negative) Urine Bilirubin Negative (Negative) Urine Urobilinogen Normal mg/dL (Negative) Urine Leukocyte Esterase Negative /uL (Negative) Urine RBC 1 /hpf (0 - 4) Urine Microscopic WBC 1 /HPF (0-5) Urine Squamous Epithelial Cells Few /hpf (<5) Urine Bacteria None seen /hpf (None Seen) Urine Glucose Normal mg/dL (Normal) Microbiology Microbiology Date/Time Source Procedure Growth Status 10/07/24 12:39 Blood Blood Culture - Preliminary NO GROWTH AFTER 72 HOURS OF INCUBATION. Resulted Assessment/Plan Assessment/Plan -left upper quadrant cellulitis and under left breast- Clinda PO, Probiotics -obesity -primary hypertension -tachycardia- Monitor -transaminitis- monitor -rule out sepsis with noted fevers- Check COVID and Flu Plan discussed with: Patient My Orders Orders - KRYSTINA QUEVEDO MD Procedure Category Date Status Time Acute Hepatitis Panel LAB 10/10/24 In Process 15:26 Comprehensive LAB 10/10/24 In Process Hepatitis Panel 15:26 Clindamycin Capsule PHA 10/10/24 In Process (Cleocin Capsule) 15:41 Nystatin Powder PHA 10/10/24 In Process (Mycostatin Powder) 22:00 Covid19 Antigen Jody LAB 10/10/24 Logged Rapid Influenza A&B LAB 10/10/24 Logged 17:38 Basic Metabolic Panel LAB 10/11/24 Verified 04:00 Complete Blood Count LAB 10/11/24 Verified 04:00 Date of Service: October 10, 2024 Billing Provider: KRYSTINA QUEVEDO MD Common Visit Codes: [id number] INP/OBS CARE(HIGH) KRYSTINA QUEVEDO MD October 10, 2024 17:46
[2024-10-10 18:57] LABS: COVID19 ANTIGEN SOFIA FIA NEGATIVE (NEGATIVE); Rapid Influenza A Negative (Negative); Rapid Influenza B Negative (Negative)
[2024-10-10] MEDS: NYSTATIN TOPICAL POWDER 15GM TOP SCH (21:00)
[2024-10-11] VITALS (8 sets, daily range): BP systolic 96–108; BP diastolic 48–64; PULSE 80–98; RESP 16–18; TEMP 97.8–100; O2SAT 97–99
[2024-10-11 07:13] LABS: Anion Gap 11 (5-15); Carbon Dioxide 24 mmol/L (20-31); Chloride 103 mmol/L (98-107); Potassium 3.8 mmol/L (3.5-5.1); Sodium 138 mmol/L (136-145)
[2024-10-11 07:16] LABS: Calcium 8.6 mg/dL (8.7-10.4)
[2024-10-11 07:19] LABS: BUN/Creatinine Ratio 11.9 (10.0-20.0); Glucose 87 mg/dL (74-106)
[2024-10-11 07:21] LABS: Blood Urea Nitrogen 8 mg/dL (9-23)
[2024-10-11 07:35] LABS: Basophils # (auto) 0 10 ^3/uL (0-0.2); Basophils % (auto) 0.4 % (0.0-2.0); Eosinophils # (auto) 0.2 10 ^3/uL (0-0.8); Eosinophils % (auto) 5.9 % (0.0-7.0); Hematocrit 38.7 % (36.0-46.0); Hemoglobin 13.1 g/dL (12.2-16.2); Lymphocytes % (auto) 34.1 % (10.0-50.0); Mean Corpuscular Hemoglobin 26.9 pg (28.0-32.0); Mean Corpuscular Hgb Conc. 33.9 g/dL (32.0-36.0); Mean Corpuscular Volume 79.3 fL (80.0-100.0); Monocytes # (auto) 0.2 10 ^3/uL (0-1.3); Monocytes % (auto) 7.3 % (0.0-12.0); Neutrophils # (auto) 1.5 10 ^3/uL (1.6-8.6); Neutrophils % (auto) 52.3 % (37.0-80.0); Nucleated Red Blood Cells % 0.1 %; Platelet Count (auto) 163 10^3/uL (140-450); Red Blood Cells 4.88 10^6/uL (4.0-5.20); Red Cell Distribution Width 14.7 % (11.8-14.3); White Blood Cell 2.9 10^3/uL (4.4-10.8)
[2024-10-11] MEDS ORDERED: LORazepam 2MG/ML-1ML VIAL IV ONE (14:00)
[2024-10-11] MEDS ORDERED: GADOTERATE MEG 10 MMOL/20ml INJ (0.5MMOL/ml) IV ONE (14:43)
--- NOTE | 2024-10-11 16:45 | DVHPN2 ---
Subjective Seen and examined at bedside, will get MRI ABD/PELVIS with IV Contrast Reviewed: Care Plan, H&P, Labs, Medications, Previous Orders Changes from previous H/P or p: No Changes General: Per HPI Eyes: No Pain, No Vision change, No Conjunctivae inflammation, No Eyelid inflammation, No Other, No Redness ENT: No Ear pain, No Ear discharge, No Nose pain, No Nose discharge, No Nose congestion, No Mouth pain, No Mouth swelling, No Throat pain, No Throat swelling, No Other Cardiovascular: No Chest Pain, No Palpitations, No Orthopnea, No Paroxysmal Noc. Dyspnea, No Edema, No Lt Headedness, No Other Respiratory: No Cough, No Dry, No Shortness of breath, No SOB with excertion, No Wheezing, No Hemoptysis, No Pleuritic Pain, No Sputum, No Other Gastrointestinal: No Nausea, No Vomiting, No Abdominal Pain, No Diarrhea, No Constipation, No Melena, No Hematochezia, No Other Genitourinary: No Dysuria, No Frequency, No Incontinence, No Hematuria, No Retention, No Other Musculoskeletal: No other, No neck pain, No shoulder pain, No arm pain, No back pain, No hand pain, No leg pain, No foot pain Skin: No Rash, No Lesions, No Jaundice, No Bruising, No Other Objective Vitals Vital Signs Date Time Temp Pulse Resp B/P (MAP) Pulse Ox O2 Delivery O2 Flow Rate FiO2 10/11/24 13:00 98.0 92 16 108/64 (79) 98 98.0 10/11/24 08:00 Room Air* 0 21 Intake/Output Intake and Output 10/11/24 07:00 Intake Total 2250 ml Balance 2250 ml Intake Oral 2150 ml IV Total 100 ml # Voids 8 # Bowel Movements 1 General Appearance: Alert, Oriented X3, Cooperative HEENT: Atraumatic, PERRLA Lungs: Clear to auscultation, Normal air movement Chest/Breasts: Other (Examined with RN. Mild rendess under left Breast) Cardiovascular: Normal S1, Normal S2 Abdomen: Normal bowel sounds, Soft, No tenderness Musculoskeletal: Normal sensory function, Normal motor function Skin: Dry, Intact Psych/Mental Status: Mental status NL, Mood NL Medications Current Medications Medications Dose Ordered Sig/Gloria Route Start Time Stop Time Status Last Admin Dose Admin Acetaminophen/ Hydrocodone Bitart 1 tab Q4HP PRN PO 10/07/24 14:15 10/08/24 12:06 1 TAB Ondansetron HCl 4 mg Q4HP PRN IV 10/07/24 14:15 10/09/24 11:58 4 MG Acetaminophen 650 mg Q6HP PRN PO 10/07/24 14:15 10/11/24 01:03 650 MG Morphine Sulfate 2 mg Q4HPRN PRN IV 10/07/24 14:15 Alprazolam 0.5 mg QHSP PRN PO 10/07/24 20:00 10/08/24 21:14 0.5 MG Saccharomyces Boulardii 250 mg DAILY PO 10/08/24 14:30 10/11/24 12:49 250 MG Metoprolol Succinate 25 mg DAILY PO 10/09/24 10:00 10/11/24 12:48 25 MG Clindamycin HCl 300 mg Q8HR PO 10/10/24 15:41 10/11/24 13:39 300 MG Nystatin 1 applic BID TOP 10/10/24 22:00 10/11/24 12:49 1 APPLIC Laboratory Results Laboratory Tests 10/11/24 05:27 Chemistry Test 10/11/24 05:27 Calcium Level 8.6 mg/dL (8.7-10.4) L Urinalysis Test 10/07/24 15:58 Urine Color Colorless (Yellow) Urine Clarity Clear (Clear) Urine pH 6.5 (5.0-9.0) Urine Specific [employer] 1.006 (1.001-1.035) Urine Protein Negative (Negative) Urine Ketones Negative (Negative) Urine Blood Negative /uL (Negative) Urine Nitrite Negative (Negative) Urine Bilirubin Negative (Negative) Urine Urobilinogen Normal mg/dL (Negative) Urine Leukocyte Esterase Negative /uL (Negative) Urine RBC 1 /hpf (0 - 4) Urine Microscopic WBC 1 /HPF (0-5) Urine Squamous Epithelial Cells Few /hpf (<5) Urine Bacteria None seen /hpf (None Seen) Urine Glucose Normal mg/dL (Normal) Microbiology Microbiology Date/Time Source Procedure Growth Status 10/07/24 12:39 Blood Blood Culture - Preliminary NO GROWTH AFTER 72 HOURS OF INCUBATION. Resulted Assessment/Plan Assessment/Plan -left upper quadrant cellulitis and under left breast- Clinda PO, Probiotics\ -lymph node enlargement- Get MRI ABD/PELVIS IV CONTRAST -obesity -primary hypertension -tachycardia- Monitor -transaminitis- monitor -rule out sepsis with noted fevers- Check COVID and Flu Plan discussed with: Patient My Orders Orders - KRYSTINA QUEVEDO MD Procedure Category Date Status Time Apply: KETURAH 10/10/24 In Process 14:20 * Wound Consult CONS 10/10/24 Transmitted Date of Service: October 11, 2024 Billing Provider: KRYSTINA QUEVEDO MD Common Visit Codes: [id number] INP/OBS CARE(MOD) KRYSTINA QUEVEDO MD October 11, 2024 16:45
--- NOTE | 2024-10-11 17:46 | DVH ---
MRI Abdomen, with and without IV Contrast Exam Date: 10/11/2024 03:13 PM Comparison: CT of the abdomen and pelvis 10/09/2024 History: Abnormal CT Technique: Multisequence multiplanar MRI images were obtained of the abomen. 20 mL of hollie scan was administered intravenously during this examination. Initial imaging is obtai diane without intravenous contrast. Findings: Liver: The liver is normal in size without focal lesions. Normal liver contour. Spleen: Unremarkable. Pancreas: The pancreas is normal in appearance without focal lesions. Gallbladder and ducts: Gallbladder is normal in appearance. The cystic duct, right and left hepatic ducts, common hepatic duct, and common bile ducts are unremarkable. The pancreatic duct is within n ormal limits. Adrenal glands: Unremarkable. Kidneys: Normal enhancement without suspicious lesions or hydronephrosis. Visualized bowel: Grossly unremarkable. Vasculature: Left-sided IVC noted. Lymphadenopathy: No evidence for lymphadenopathy. Ascites: Absent. Musculoskeletal: Bone marrow signal is normal. IMPRESSION: 1. Unremarkable MRI of the abdomen. Left-sided IVC noted. Exam: MRI MRI ABD PLEVIS W/WO CONT History: Abnormal CT Comparison: CT of the abdomen and pelvis 10/09/2024 Technique: Multisequence multiplanar MRI images of the pelvis were performed. CONTRAST: Type of contrast: Clariscan Contrast injected: 20 ml Findings: Bladder: Unremarkable. Visualized bowel: Visualized portion of the bowel is grossly unremarkable without evidence for obstru ction. Pelvic organs: Left ovarian cystic lesion measuring up to 36 mm with irregular peripheral enhancement . Lymphadenopathy: No evidence for pelvic lymphadenopathy. Vasculature: There is normal enhancement of the pelvic vasculature. Ascites: Trace free fluid in the pelvis is likely physiologic. Musculoskeletal: The bone marrow signal is preserved. IMPRESSION: 1. Left ovarian cystic lesion with irregular peripheral enhancement. Neoplasm is not excluded. Clinic al correlation and continued follow-up is recommended with next MRI of the pelvis with contrast in 3 months. Gynecologic evaluation is recommended. HS:Y
[2024-10-12 01:00] VITALS: BP 111/60; PULSE 63; RESP 18; TEMP 97.8; O2SAT 97
[2024-10-12 05:00] VITALS: BP 92/71; PULSE 80; RESP 18; TEMP 97.8; O2SAT 97
[2024-10-12 08:00] VITALS: BP 117/74; PULSE 85; RESP 18; TEMP 98.1; O2SAT 97
[2024-10-12 10:24] LABS: Hepatitis B Core Total AB Negative (Negative)
[2024-10-12 11:17] LABS: Hepatitis A Total Antibody Positive (Negative)
[2024-10-12 11:18] LABS: Hepatitis A Ab IgM Negative; Hepatitis B Core IgM Negative (Negative); Hepatitis B Surface Antibody Negative (Negative); Hepatitis B Surface Antigen Negative (Negative); Hepatitis C Antibody Negative (Negative)
[2024-10-12 12:00] VITALS: BP 120/70; PULSE 68; RESP 18; TEMP 97.6; O2SAT 97
[2024-10-12] MEDS ORDERED: SACC250C PO (15:07)
[2024-10-12] MEDS ORDERED: CLIN150C PO (15:07)
[2024-10-12] MEDS ORDERED: NYS15PW TOP (15:07)
--- NOTE | 2024-10-12 15:12 | DVHDS2 ---
Discharge Summary Date of Admission October 07, 2024 at 14:10 Date of Discharge: October 12, 2024 Admitting Diagnosis Left ovarian cystic lesion Labs/Diagnostic Data: Laboratory Results Test 10/11/24 05:27 10/10/24 18:08 10/10/24 05:18 10/07/24 15:58 White Blood Count 2.9 10^3/uL (4.4-10.8) Red Blood Count 4.88 10^6/uL (4.0-5.20) Hemoglobin 13.1 g/dL (12.2-16.2) Hematocrit 38.7 % (36.0-46.0) Mean Corpuscular Volume 79.3 fL (80.0-100.0) Mean Corpuscular Hemoglobin 26.9 pg (28.0-32.0) Mean Corpuscular Hemoglobin Concent 33.9 g/dL (32.0-36.0) Red Cell Distribution Width 14.7 % (11.8-14.3) Platelet Count 163 10^3/uL (140-450) Mean Platelet Volume 9.2 fL (6.9-10.8) Neutrophils (%) (Auto) 52.3 % (37.0-80.0) Lymphocytes (%) (Auto) 34.1 % (10.0-50.0) Monocytes (%) (Auto) 7.3 % (0.0-12.0) Eosinophils (%) (Auto) 5.9 % (0.0-7.0) Basophils (%) (Auto) 0.4 % (0.0-2.0) Neutrophils # (Auto) 1.5 10 ^3/uL (1.6-8.6) Lymphocytes # (Auto) 1.0 10 ^3/uL (0.4-5.4) Monocytes # (Auto) 0.2 10 ^3/uL (0-1.3) Eosinophils # (Auto) 0.2 10 ^3/uL (0-0.8) Basophils # (Auto) 0 10 ^3/uL (0-0.2) Nucleated Red Blood Cells 0.1 % Sodium Level 138 mmol/L (136-145) Potassium Level 3.8 mmol/L (3.5-5.1) Chloride Level 103 mmol/L (98-107) Carbon Dioxide Level 24 mmol/L (20-31) Anion Gap 11 (5-15) Blood Urea Nitrogen 8 mg/dL (9-23) Creatinine 0.67 mg/dL (0.550-1.02) Glomerular Filtration Rate Calc 116 mL/min (>90) BUN/Creatinine Ratio 11.9 (10.0-20.0) Serum Glucose 87 mg/dL (74-106) Calcium Level 8.6 mg/dL (8.7-10.4) Lactate Dehydrogenase 275 U/L (120-246) Creatine Kinase 29 U/L (34-145) Influenza Type A Antigen Negative (Negative) Influenza Type B Antigen Negative (Negative) SARS-CoV-2 Antigen (Rapid) Negative (NEGATIVE) Erythrocyte Sedimentation Rate 8 mm/hr (0-20) Total Bilirubin 0.3 mg/dL (0.2-1.0) Aspartate Amino Transferase (AST) 26 U/L (13-40) Alanine Aminotransferase (ALT) 55 U/L (7-40) Alkaline Phosphatase 94 U/L (46-116) C-Reactive Protein High Sensitivity 2.89 mg/dL (<1.0) Total Protein 6.0 g/dL (5.7-8.2) Albumin 4.0 g/dL (3.2-4.8) Hepatitis A IgM Antibody Negative Hepatitis A Antibody Total Positive (Negative) Hepatitis B Surface Antigen Negative (Negative) Hepatitis B Surface Antibody Negative (Negative) Hepatitis B Core Total Antibody Negative (Negative) Hepatitis B Core IgM Antibody Negative (Negative) Hepatitis C Antibody Negative (Negative) HIV (1&2) Antibody Negative (Negative) Urine Color Colorless (Yellow) Urine Clarity Clear (Clear) Urine pH 6.5 (5.0-9.0) Urine Specific [place] 1.006 (1.001-1.035) Urine Protein Negative (Negative) Urine Ketones Negative (Negative) Urine Blood Negative /uL (Negative) Urine Nitrite Negative (Negative) Urine Bilirubin Negative (Negative) Urine Urobilinogen Normal mg/dL (Negative) Urine Leukocyte Esterase Negative /uL (Negative) Urine RBC 1 /hpf (0 - 4) Urine Microscopic WBC 1 /HPF (0-5) Urine Squamous Epithelial Cells Few /hpf (<5) Urine Bacteria None seen /hpf (None Seen) Urine Glucose Normal mg/dL (Normal) Test 10/07/24 14:18 10/07/24 12:39 10/07/24 11:53 Troponin I High Sensitivity < 3 ng/L (</=34) Lactic Acid Level 1.2 mmol/L (0.4-2.0) B-Type Natriuretic Peptide 10.63 pg/mL (0-100) Beta HCG, Quantitative 0.5 mIU/mL (1.5-4.2) Other Laboratory Tests 10/11/24 05:27 Brief Hx & Hospital Course: This 34-year-old female presents in the ED with a chief complaint of chest pain. The patient reports left breast cellulitis, infection, for the past three weeks. Patient was spiking temperatures, Was treated with Clindamycin and has Leukopenia. Patient reports to be feeling better. We got a MRI of ABD/PELVIS which showed a lesion on the Ovary Left Side. Patient needs to have a repeat MRI in 2-3 months with IV Contrast to monitor. Patient also needs to have UTILITY ARBORIST Consult. I spoke with Dana Watkins NP and updated her on the plan of care. Operations or Procedures MRI Abdomen, with and without IV Contrast Exam Date: 10/11/2024 03:13 PM Comparison: CT of the abdomen and pelvis 10/09/2024 History: Abnormal CT Technique: Multisequence multiplanar MRI images were obtained of the abomen. 20 mL of hollie scan was administered intravenously during this examination. Initial imaging is obtained without intravenous contrast. Findings: Liver: The liver is normal in size without focal lesions. Normal liver contour. Spleen: Unremarkable. Pancreas: The pancreas is normal in appearance without focal lesions. Gallbladder and ducts: Gallbladder is normal in appearance. The cystic duct, right and left hepatic ducts, common hepatic duct, and common bile ducts are unremarkable. The pancreatic duct is within normal limits. Adrenal glands: Unremarkable. Kidneys: Normal enhancement without suspicious lesions or hydronephrosis. Visualized bowel: Grossly unremarkable. Vasculature: Left-sided IVC noted. Lymphadenopathy: No evidence for lymphadenopathy. Ascites: Absent. Musculoskeletal: Bone marrow signal is normal. IMPRESSION: 1. Unremarkable MRI of the abdomen. Left-sided IVC noted. Exam: MRI MRI ABD PLEVIS W/WO CONT History: Abnormal CT Comparison: CT of the abdomen and pelvis 10/09/2024 Technique: Multisequence multiplanar MRI images of the pelvis were performed. CONTRAST: Type of contrast: Clariscan Contrast injected: 20 ml Findings: Bladder: Unremarkable. Visualized bowel: Visualized portion of the bowel is grossly unremarkable without evidence for obstruction. Pelvic organs: Left ovarian cystic lesion measuring up to 36 mm with irregular peripheral enhancement. Lymphadenopathy: No evidence for pelvic lymphadenopathy. Vasculature: There is normal enhancement of the pelvic vasculature. Ascites: Trace free fluid in the pelvis is likely physiologic. Musculoskeletal: The bone marrow signal is preserved. IMPRESSION: 1. Left ovarian cystic lesion with irregular peripheral enhancement. Neoplasm is not excluded. Clinical correlation and continued follow-up is recommended with next MRI of the pelvis with contrast in 3 months. Gynecologic evaluation is recommended. Condition at Discharge: Poor Final Diagnosis/Problems List -Left ovarian cystic lesion- UTILITY ARBORIST in 2-3 months -left upper quadrant cellulitis and under left breast- Clinda PO, Probiotics -lymph node enlargement- Get MRI ABD/PELVIS IV CONTRAST -obesity -primary hypertension -tachycardia- Monitor -transaminitis- monitor -rule out sepsis with noted fevers- Check COVID and Flu Discharge Disposition: Home Discharge Instruct/Medications Diet: Regular Activity: Light activity Follow Up/Referral: Dr. Malcolm in 2 months Dana Watkins NP Medications: Clindamycin Discharge Statement: "Patient was advised to return to the ER or call 911 if any headaches, dizziness, shortness of breath, chest pain, abdominal pain, bleeding, fevers, or worsening of medical condition. Patient was counseled about treatment plan, medications, possible side effects, patientverbalized understanding. All questions were answered to the best of my ability. This discharge took greater then 30 minutes in planning, reviewing documentation, counseling the patient, and discussing with other team members." ASSESSMENT ASSESSMENT Assessment Date of Service: October 12, 2024 Billing Provider: KRYSTINA QUEVEDO MD Common Visit Codes: 77286-LRQ/OBS DISCH DAY >30min KRYSTINA QUEVEDO MD October 12, 2024 15:12
[2024-10-12 16:00] VITALS: BP 112/72; PULSE 80; RESP 18; TEMP 97.8; O2SAT 99
[2024-10-12 17:10] VITALS: BP 120/70; PULSE 68; RESP 18; TEMP 97.6; O2SAT 97
== END 2024-10-12 18:24 | disposition home or self-care (01) | DRG 872 ==
LOC: EEVIPCON 11:38 → ER 11:38 → OVERFLOW 14:10 → EEVIPCON 14:10 → CENTRAL 18:12
PROVIDERS: ADMIT Internal Medicine; ATTEND Internal Medicine
DX: A41.9 Sepsis, unspecified organism (principal); L03.313 Cellulitis of chest wall; L03.311 Cellulitis of abdominal wall; I10 Essential (primary) hypertension; E66.9 Obesity, unspecified; J45.909 Unspecified asthma, uncomplicated; E11.9 Type 2 diabetes mellitus without complications; Z68.36 Body mass index [BMI] 36.0-36.9, adult; N61.0 Mastitis without abscess; Z20.822 Contact with and (suspected) exposure to COVID-19; F41.9 Anxiety disorder, unspecified; R74.01 Elevation of levels of liver transaminase levels; R59.9 Enlarged lymph nodes, unspecified; E28.2 Polycystic ovarian syndrome; Z87.440 Personal history of urinary (tract) infections
CPT/HCPCS: 36415; 71250; 72195; 74177; 74181; 80048; 80053; 80074; 81001; 82550; 83605; 83615; 83880; 84484; 84702; 85025; 85652; 86141; 86703; 86704; 86706; 86708; 86803; 87040; 87340; 87426; 87804; 93005; 96365; 96375; 99291; G0378; J0692; J2405; J2543; J3490

== ENCOUNTER → 2024-10-19 | Outpatient (CLI) | payer BC, MEDICAID ==
[~2024-10-19] MED LIST changes: -ACE3T PO; -ALPR0.5T PO; +CLIN150C PO; -IBUP-1455 PO; +NYS15PW TOP; +SACC250C PO; -TIRZ7.5I SC; -TRAM50TA2 PO; -ZOFR4T PO
== END | disposition home or self-care (01) ==
LOC: LAB 15:02
PROVIDERS: ATTEND Internal Medicine
DX: C56.2 Malignant neoplasm of left ovary (principal); E28.2 Polycystic ovarian syndrome
CPT/HCPCS: 86304

== ENCOUNTER 2024-11-16 12:11 | Outpatient (CLI) | payer BC ==
[2024-11-16 12:39] LABS: Basophils # (auto) 0.1 10 ^3/uL (0-0.2); Basophils % (auto) 1.5 % (0.0-2.0); Eosinophils # (auto) 0.1 10 ^3/uL (0-0.8); Eosinophils % (auto) 0.9 % (0.0-7.0); Hematocrit 40.9 % (36.0-46.0); Hemoglobin 13.6 g/dL (12.2-16.2); Lymphocytes # (auto) 1.7 10 ^3/uL (0.4-5.4); Lymphocytes % (auto) 29.7 % (10.0-50.0); Mean Corpuscular Hemoglobin 26.6 pg (28.0-32.0); Mean Corpuscular Hgb Conc. 33.1 g/dL (32.0-36.0); Mean Corpuscular Volume 80.4 fL (80.0-100.0); Monocytes # (auto) 0.3 10 ^3/uL (0-1.3); Monocytes % (auto) 5.6 % (0.0-12.0); Neutrophils # (auto) 3.6 10 ^3/uL (1.6-8.6); Neutrophils % (auto) 62.3 % (37.0-80.0); Platelet Count (auto) 452 10^3/uL (140-450); Red Blood Cells 5.09 10^6/uL (4.0-5.20); Red Cell Distribution Width 15.7 % (11.8-14.3); White Blood Cell 5.7 10^3/uL (4.4-10.8)
[2024-11-16 12:43] LABS: Wright Stain Ready for Review
[2024-11-16 13:02] LABS: Alanine Aminotransferase 17 U/L (7-40); Alkaline Phosphatase 83 U/L (46-116); Anion Gap 11 (5-15); Aspartate Aminotransferase 14 U/L (<34); BUN/Creatinine Ratio 19.7 (10.0-20.0); Blood Urea Nitrogen 13 mg/dL (9-23); Calcium 9.6 mg/dL (8.7-10.4); Carbon Dioxide 24 mmol/L (20-31); Chloride 105 mmol/L (98-107); Glucose 89 mg/dL (74-106); Potassium 4.1 mmol/L (3.5-5.1); Sodium 140 mmol/L (136-145); Total Protein 7.6 g/dL (5.7-8.2)
[2024-11-16 13:03] LABS: Bilirubin, Total 0.4 mg/dL (0.2-1.0)
[2024-11-16 13:05] LABS: Albumin 4.9 g/dL (3.2-4.8); Ferritin 22.2 ng/mL (10-291)
[2024-11-16 13:06] LABS: Folate (Folic Acid) 16.14 ng/mL (>5.38)
[2024-11-16 13:24] LABS: Hepatitis B Surface Antigen Negative (Negative)
[2024-11-16 13:43] LABS: Hepatitis A Ab IgM Negative; Hepatitis B Core IgM Negative (Negative); Hepatitis C Antibody Negative (Negative)
[2024-11-19 10:16] LABS: % Iron Saturation 9.6 % (15-50)
[2024-11-20 10:07] LABS: Methylmalonic Acid 125 nmol/L (0-378)
== END 2024-11-16 17:00 | disposition home or self-care (01) ==
LOC: LAB 12:11
PROVIDERS: ATTEND Internal Medicine Hematology & Oncology
DX: E28.2 Polycystic ovarian syndrome (principal); E78.5 Hyperlipidemia, unspecified; E13.40 Other specified diabetes mellitus with diabetic neuropathy, unspecified; E66.9 Obesity, unspecified; L68.0 Hirsutism; D70.9 Neutropenia, unspecified
CPT/HCPCS: 36415; 80053; 80074; 82607; 82728; 82746; 83540; 83550; 85025; 86703

== ENCOUNTER 2024-12-12 10:40 | Outpatient (CLI) | payer BC ==
[2024-12-12 11:17] LABS: Hematocrit 41.9 % (36.0-46.0); Hemoglobin 13.9 g/dL (12.2-16.2); Mean Corpuscular Hemoglobin 26.7 pg (28.0-32.0); Mean Corpuscular Volume 80.4 fL (80.0-100.0); Nucleated Red Blood Cells % 0.1 %
[2024-12-12 11:41] LABS: Alanine Aminotransferase 16 U/L (7-40); Alkaline Phosphatase 82 U/L (46-116); Anion Gap 10 (5-15); BUN/Creatinine Ratio 17.8 (10.0-20.0); Blood Urea Nitrogen 13 mg/dL (9-23); Calcium 10.2 mg/dL (8.7-10.4); Carbon Dioxide 25 mmol/L (20-31); Chloride 106 mmol/L (98-107); Glucose 91 mg/dL (74-106); Potassium 3.9 mmol/L (3.5-5.1); Sodium 141 mmol/L (136-145); Total Protein 7.6 g/dL (5.7-8.2)
[2024-12-12 11:42] LABS: Albumin 5.1 g/dL (3.2-4.8); Bilirubin, Total 0.5 mg/dL (0.2-1.0)
[2024-12-12 11:53] LABS: Protein, Urine < 6.0 mg/dL (1-14)
[2024-12-12 15:24] LABS: Hepatitis C Antibody Negative (Negative)
== END 2024-12-12 17:00 | disposition home or self-care (01) ==
LOC: LAB 10:40
PROVIDERS: ATTEND Internal Medicine Rheumatology
DX: M06.4 Inflammatory polyarthropathy (principal)
CPT/HCPCS: 36415; 80053; 82570; 84156; 85025; 85652; 86141; 86706; 86803

== ENCOUNTER 2025-02-19 08:52 | Outpatient (CLI) | payer BC ==
[2025-02-19 10:34] LABS: Hematocrit 46.5 % (36.0-46.0); Hemoglobin 15.6 g/dL (12.2-16.2); Mean Corpuscular Hemoglobin 28.3 pg (28.0-32.0); Mean Corpuscular Volume 84.1 fL (80.0-100.0); Nucleated Red Blood Cells % 0.1 %
[2025-02-19 11:05] LABS: Iron 94.0 ug/dL (50-170)
[2025-02-19 11:07] LABS: Total Iron Binding Capacity 293.0 ug/dL (250-425)
[2025-02-19 11:12] LABS: Ferritin 361.2 ng/mL (10-291)
[2025-02-19 11:20] LABS: Microalb/Creat Ratio, Urine 17.0
[2025-02-19 11:22] LABS: Alanine Aminotransferase 27 U/L (7-40); Alkaline Phosphatase 77 U/L (46-116); Anion Gap 11 (5-15); Calcium 9.6 mg/dL (8.7-10.4); Carbon Dioxide 25 mmol/L (20-31); Chloride 104 mmol/L (98-107); Glucose 88 mg/dL (74-106); Potassium 4.0 mmol/L (3.5-5.1); Sodium 140 mmol/L (136-145)
[2025-02-19 11:23] LABS: BUN/Creatinine Ratio 20.3 (10.0-20.0); Blood Urea Nitrogen 15 mg/dL (9-23); Total Protein 7.5 g/dL (5.7-8.2)
[2025-02-19 11:25] LABS: Bilirubin, Total 0.3 mg/dL (0.2-1.0)
[2025-02-19 11:26] LABS: Albumin 4.8 g/dL (3.2-4.8)
[2025-02-19 12:13] LABS: Triglycerides 109 mg/dL (< 150)
[2025-02-19 12:15] LABS: Cholesterol 158 mg/dL (< 200); HDL Cholesterol 51 mg/dL (40-59)
== END 2025-02-19 17:00 | disposition home or self-care (01) ==
LOC: LAB 08:52
PROVIDERS: ATTEND Nurse Practitioner Family
DX: I10 Essential (primary) hypertension (principal); D70.9 Neutropenia, unspecified; E13.40 Other specified diabetes mellitus with diabetic neuropathy, unspecified; E28.2 Polycystic ovarian syndrome; E78.5 Hyperlipidemia, unspecified; D50.9 Iron deficiency anemia, unspecified; L68.0 Hirsutism; M32.10 Systemic lupus erythematosus, organ or system involvement unspecified; Z00.01 Encounter for general adult medical examination with abnormal findings; Z79.899 Other long term (current) drug therapy
CPT/HCPCS: 36415; 80053; 80061; 82043; 82306; 82570; 82607; 82728; 82746; 83036; 83540; 83550; 84443; 85025

== ENCOUNTER → 2025-05-16 | Outpatient (CLI) | payer BC ==
[2025-05-16 13:06] LABS: Hematocrit 44.5 % (36.0-46.0); Hemoglobin 15.3 g/dL (12.2-16.2); Mean Corpuscular Hemoglobin 29.8 pg (28.0-32.0); Mean Corpuscular Volume 86.9 fL (80.0-100.0); Nucleated Red Blood Cells % 0.1 %
[2025-05-16 13:43] LABS: Alanine Aminotransferase 28 U/L (7-40); Alkaline Phosphatase 100 U/L (46-116); Bilirubin, Total 0.4 mg/dL (0.2-1.0); Carbon Dioxide 26 mmol/L (20-31); Chloride 104 mmol/L (98-107); Glucose 90 mg/dL (74-106); Potassium 3.9 mmol/L (3.5-5.1); Total Protein 8.2 g/dL (5.7-8.2)
[2025-05-16 13:47] LABS: BUN/Creatinine Ratio 11.0 (10.0-20.0); Blood Urea Nitrogen 9 mg/dL (9-23); Calcium 10.6 mg/dL (8.7-10.4)
[2025-05-16 13:48] LABS: Albumin 5.2 g/dL (3.2-4.8)
[2025-05-16 13:57] LABS: Protein, Urine < 6.0 mg/dL (1-14)
[2025-05-16 15:04] LABS: Benzodiazephine Screen, Urine Neg (NEGATIVE); Opiate Scree,Urine Neg (NEGATIVE)
[2025-05-16 15:06] LABS: Amphetamine Screen, Urine Neg (NEGATIVE); Barbiturate Scree,Urine Neg (NEGATIVE); Cannabinoid Screen, Urine Neg (NEGATIVE); Cocaine Screen, Urine Neg (NEGATIVE); Phencyclidine Screen, Urine Neg (NEGATIVE)
[2025-05-16 15:55] LABS: Anion Gap 11 (5-15); Sodium 141 mmol/L (136-145)
== END | disposition home or self-care (01) ==
LOC: LAB 12:21
PROVIDERS: ATTEND Internal Medicine Rheumatology
DX: M32.10 Systemic lupus erythematosus, organ or system involvement unspecified (principal); Z11.1 Encounter for screening for respiratory tuberculosis; Z79.899 Other long term (current) drug therapy
CPT/HCPCS: 36415; 80053; 80307; 82570; 84156; 85025; 85652; 86141; 86480